=== PATIENT | male | born 1980 | race Caucasian/White ===

== ENCOUNTER 2019-05-22 16:16 | Emergency (ER) | payer OTHER ==
[~2019-05-22] VITALS: Ht 188 cm; Wt 81.7 kg
[~2019-05-22 16:16] MED LIST: ALBU.083IS IH; ALBU90OI61 INH; Bactrim Ds Tab1 EACH PO; CHOL10002 PO; CYCL10 PO; HYDACE5 PO; LEVSOD150 PO; NAPR500 PO; OXYACE5T PO; PENVK500 PO; PSEU120ER PO; RXCLIN PO; RXOXYACE PO; TRAM50 PO; Ultram50 MG PO
[2019-05-22] MEDS ORDERED: MINO50 PO (16:53)
== END 2019-05-22 17:33 | disposition home or self-care (01) ==
LOC: ER 16:16
DX: L03.116 Cellulitis of left lower limb (principal); E07.9 Disorder of thyroid, unspecified; F17.200 Nicotine dependence, unspecified, uncomplicated; Z79.899 Other long term (current) drug therapy
CPT/HCPCS: 90471; 90714; 96372; 99283-25; J0690

== ENCOUNTER 2020-10-12 05:21 | Emergency (ER) | payer OTHER ==
[~2020-10-12] VITALS: Ht 188 cm; Wt 95.2 kg
[~2020-10-12 05:21] MED LIST changes: +MINO50 PO
[2020-10-12] MEDS ORDERED: OXYACE7.5T PO (09:03)
== END 2020-10-12 09:27 | disposition home or self-care (01) ==
LOC: ER 05:21
DX: S42.211A Unspecified displaced fracture of surgical neck of right humerus, initial encounter for closed fracture (principal); I10 Essential (primary) hypertension; F17.210 Nicotine dependence, cigarettes, uncomplicated; S60.512A Abrasion of left hand, initial encounter; S00.83XA Contusion of other part of head, initial encounter; Y93.55 Activity, bike riding; Y92.410 Unspecified street and highway as the place of occurrence of the external cause
CPT/HCPCS: 70110; 73030; 99285-25; A9270

== ENCOUNTER 2020-11-18 18:34 | Emergency (ER) | payer OTHER ==
[~2020-11-18] VITALS: Ht 190.5 cm; Wt 90.7 kg
[~2020-11-18 18:34] MED LIST changes: +OXYACE7.5T PO
[2020-11-18 19:17] LABS: BASOPHILS ABSOLUTE AUTO 0.13 K/mm3 (0.00-0.23); BASOPHILS PERCENT AUTO 1 % (0-2); EOSINOPHILS ABSOLUTE AUTO 0.57 K/mm3 (0.00-0.68); EOSINOPHILS PERCENT AUTO 4 % (0-6); Hematocrit 44.1 % (37.0-53.0); IMMATURE GRAN ABSOLUTE AUTO 0.09 K/mm3 (0.00-0.10); IMMATURE GRAN PERCENT AUTO 1 % (0-1); LYMPHOCYTES ABSOLUTE AUTO 1.93 K/mm3 (0.84-5.20); LYMPHOCYTES PERCENT AUTO 13 % (21-46); MONOCYTES PERCENT AUTO 5 % (4-13); Mean Corpuscular Volume 94 fL (80-100); Mean Platelet Volume 10.3 fL (9.1-12.4); NEUTROPHILS ABSOLUTE AUTO 11.93 K/mm3 (1.96-9.15); NEUTROPHILS PERCENT AUTO 77 % (41-73); Platelet Count 359 K/mm3 (150-400); RDW Coefficient Variation 13.4 % (11.7-14.2); RDW Standard Deviation 46.5 fL (35.1-46.3); Red Blood Cell Count 4.69 M/mm3 (4.30-5.90); White Blood Cell Count 15.45 K/mm3 (4.00-11.30)
[2020-11-18 21:23] LABS: Alanine Aminotransfer (ALT/SGP 133 U/L (12-78); Albumin, Blood 4.8 g/dL (3.4-5.0); Albumin/Globulin Ratio 1.3 (0.8-1.8); Alk Phos 100 U/L (50-136); Anion Gap 6 mmol/L (6-16); Aspartate Aminotrans (AST/SGOT 217 U/L (12-37); Bilirubin, Total 0.7 mg/dL (0.1-1.0); Blood Urea Nitrogen 19 mg/dL (8-24); Bun/Creatinine Ratio 13.8 (12.0-20.0); CO2, Blood 28 mmol/L (21-32); Calcium, Blood 9.6 mg/dL (8.5-10.1); Chloride, Blood 103 mmol/L (98-108); Creatinine, Blood 1.38 mg/dL (0.60-1.20); Globulin, Blood 3.7 g/dL (2.2-4.0); Glomerular Filtration Rate 57 (60-); Glucose, Blood 112 mg/dL (70-99); Potassium, Blood 3.2 mmol/L (3.5-5.5); Sodium, Blood 137 mmol/L (136-145); Total Protein, Blood 8.5 g/dL (6.4-8.2); Troponin I <0.015 ng/mL (0.000-0.040)
[2020-11-18] MEDS ORDERED: IBUP800 PO (22:18)
[2020-11-18] MEDS ORDERED: ALBU90OI INH (22:18)
[2020-11-18] MEDS ORDERED: Norco 5-325 Ta1 EACH PO (22:18)
== END 2020-11-18 22:15 | disposition home or self-care (01) ==
LOC: ER 18:34
PROVIDERS: Emergency Medicine Emergency Medical Services
DX: S32.019A Unspecified fracture of first lumbar vertebra, initial encounter for closed fracture (principal); S32.10XA Unspecified fracture of sacrum, initial encounter for closed fracture; S32.592A Other specified fracture of left pubis, initial encounter for closed fracture; I10 Essential (primary) hypertension; F17.210 Nicotine dependence, cigarettes, uncomplicated; W10.9XXA Fall (on) (from) unspecified stairs and steps, initial encounter
CPT/HCPCS: 36415; 71111; 72131; 72192; 80053; 83880; 84484; 85025; 93005; 93010; 99284-25; A9270

== ENCOUNTER 2021-06-15 03:47 | Inpatient (IN) | payer OTHER ==
[~2021-06-15] VITALS: Ht 182.9 cm; Wt 80.3 kg
[~2021-06-15 03:47] MED LIST changes: +ALBU90OI INH; +IBUP800 PO; +Norco 5-325 Ta1 EACH PO
[2021-06-15 03:55] LABS: PCO2 Arterial 38.3 mmHg (35-45); PO2 Arterial 36.4 mmHg (80-100); pH Blood Arterial 7.46 (7.35-7.45)
[2021-06-15 04:05] LABS: Calcium, Ionized (POC) 1.09 mmol/L (1.10-1.46); Chloride (POC) 97 mmol/L (98-108); Creatinine (POC) 2.9 mg/dL (0.8-1.3); Glucose (ISTAT POC) 72 mg/dL (70-99); Hemoglobin (POC) 12.9 g/dL (13.5-17.5); Potassium (POC) 3.8 mmol/L (3.5-5.5); Sodium (POC) 136 mmol/L (135-148); Total CO2 (POC) 27 mmol/L (21-32)
[2021-06-15 04:06] LABS: Hematocrit 35.9 % (37.0-53.0); Hemoglobin 11.6 g/dL (13.5-17.5); Mean Corpuscular HGB 30.9 pg (26.0-34.0); Mean Corpuscular HGB Conc 32.3 g/dL (31.5-36.5); Mean Corpuscular Volume 96 fL (80-100); Mean Platelet Volume 10.3 fL (9.1-12.4); Platelet Count 315 K/mm3 (150-400); RDW Coefficient Variation 15.6 % (11.7-14.2); Red Blood Cell Count 3.76 M/mm3 (4.30-5.90); White Blood Cell Count 10.89 K/mm3 (4.00-11.30)
[2021-06-15 04:30] LABS: Albumin, Blood 2.8 g/dL (3.4-5.0); Albumin/Globulin Ratio 0.8 (0.8-1.8); Bilirubin, Total 0.6 mg/dL (0.1-1.0); Calcium, Blood 8.6 mg/dL (8.5-10.1); Creatinine, Blood 2.78 mg/dL (0.60-1.20); Globulin, Blood 3.5 g/dL (2.2-4.0); Magnesium, Blood 2.1 mg/dL (1.6-2.4); Potassium, Blood 3.8 mmol/L (3.5-5.5); Total Protein, Blood 6.3 g/dL (6.4-8.2)
[2021-06-15 04:41] LABS: PCO2 Arterial 47.5 mmHg (35-45); PO2 Arterial 148 mmHg (80-100); pH Blood Arterial 7.33 (7.35-7.45)
[2021-06-15 04:42] LABS: Influenza A, PCR NEGATIVE (NEGATIVE); Influenza B, PCR NEGATIVE (NEGATIVE); Resp Syncytial Virus, PCR NEGATIVE (NEGATIVE); SARS-Cov-2 (COVID-19) PCR, MMC NEGATIVE (NEGATIVE)
[2021-06-15 05:00] LABS: BAND PERCENT MAN 36 % (0-8); BASOPHILS PERCENT MAN 0 % (0-2); EOSINOPHILS PERCENT MAN 0 % (0-6); LYMPHOCYTES ABSOLUTE MAN 1.08 K/mm3 (0.84-5.20); LYMPHOCYTES PERCENT MAN 10 % (21-46); METAMYELOCYTE ABSOLUTE MAN 0.21 K/mm3 (0.00-0.00); METAMYELOCYTE PERCENT MAN 2 % (0-0); MONOCYTES ABSOLUTE MAN 0.43 K/mm3 (0.16-1.47); MONOCYTES PERCENT MAN 4 % (4-13); NEUTROPHILS ABSOLUTE MAN 9.14 K/mm3 (1.96-9.15); SEG NEUTROPHILS PERCENT MAN 48 % (41-73); TOTAL CELLS COUNTED 100
--- NOTE | 2021-06-15 06:54 | NUR ---
ASSUMED CARE PATIENT ARRIVED FROM ER TO ICU @ 0525. PATIENT WAS INTUBATED AT THAT TIME-SEE RT NOTES ON SETTINGS. SEDATED WITH KETAMINE (SWITCHED TO PROPOFOL AT TOA) AND NS INF TO PIV IN LT ARM. MARINO PATENT AND DRAINING YELLOW CLEAR URINE TO GRAVITY. UPON ARRIVAL PATIENT WAS PLACED ON HIGH LT SIDE TO IMPROVED OXYGEN SATS, BUT BEGAN DESATTING TO 70'S QUICKLY. PATIENT SUBSEQUENTLY TURNED TO SUPINE WITH NO IMPROVEMENT IN SATS. PATIENT WAS THEN PRONED AND BAGGED WITH SATURATIONS IMPROVEMENT TO 90'S. PATIENT BECAME HYPOTENSIVE AND LEVOPHED STARTED LOW DOSE INTO PIV. PROPOFOL SWITCHED TO VERSED AND PATIENT REMAINS PRONED WITH VERSED @ 1MG/HR, LEVOPHED @ 5MCG/KG/MIN, AND LITER BOLUS INF. REPORT GIVEN TO VANESSA PAIGE.
[2021-06-15 07:22] LABS: Source, Urine Foley catheter
[2021-06-15 07:26] LABS: Appearance, Urine Clear (Clear); Blood, Urine Neg (Neg); Color, Urine Yellow (P-Yellow); Glucose Qualitative, Urine Neg (Neg); Ketones, Urine Neg (Neg); Leukocyte Esterase, Urine Neg (Neg); Nitrite, Urine Neg (Neg); Protein, Urine 2+ (Neg); Urobilinogen, Urine NORM (Normal)
[2021-06-15 07:39] LABS: Bilirubin, Urine 1+ (Neg)
[2021-06-15 07:40] LABS: Red Blood Cells, Urine 0-2 /hpf (0-2); White Blood Cells, Urine 0-2 /hpf (0-5)
[2021-06-15 07:41] LABS: Bacteria Rare /hpf; Granular Casts 0-2 /lpf (0); Mucus Light (0-Heavy); Squamous Epithelial Cells Rare /hpf (Few)
[2021-06-15 07:42] LABS: Calcium Oxalate Crystals Few /hpf
[2021-06-15 07:54] LABS: U Amphetamine Screen DETECTED; U Barbituate Screen Not Detected; U Benzodiazapine Screen Not Detected; U Buprenorphine Screen Not Detected; U Cannabinoids Screen DETECTED; U Cocaine Screen Not Detected; U Methadone Screen Not Detected; U Methamphetamine Screen DETECTED; U Opiates Screen Not Detected; U Oxycodone Screen Not Detected; U Phencyclidine Screen Not Detected; U Propoxyphene Screen Not Detected
--- NOTE | 2021-06-15 07:56 | NUR ---
Received report from Frannie MENDEZ. Patient is intubated and sedated with 8.0 ET and 24 cm at lips with vent settings of AC/PC 20/100/20 and sats 100%m and just reduced by Rt to 60% and sats 100%. He awakens with reduced sedation. He was increased from 1mg/hr to 3mg/hr as he was awakening and pulling at lines and tubes even with restraints in place. He has 20ga IV LAC and infusing NS bolus, Levophed 5mcg/min, and Versed. Patient has 16 Fr Bhandari draining yellow urine. Patient is proned R/T decreased sats.
[2021-06-15 08:23] LABS: Thyroxine (T4) <0.5 ug/dL (4.5-12.1)
--- NOTE | 2021-06-15 09:42 | NUR ---
Unproned patient and placed PICC line in MARIO and is currently infusingNS at 150ml/hr, Verced 3 mg/hr, Levophed at 5 mcg/min, and multiplel Abx. Bhandari remains patent and sample and tox sent, vent settings AC/PC 20/100/12 and sats 97%.
--- NOTE | 2021-06-15 11:39 | NUR ---
Patient remains intubated and sedated and awakens o verbal stimulu. Dr Zapien by and assessed patient and added Fentanyl gtt to patient. Family at bedside. Patient tolerating current vent setting but eCo2 has been 17-[address] Zapien notified and they are going to make vent settings changes.
--- NOTE | 2021-06-15 12:18 | NUR ---
Echocardiogram completed.
--- NOTE | 2021-06-15 13:05 | NUR ---
Patient resting better and continues to awaken with verbal stimuli. New vent settings are 15/550/60/16 and sats 94%. Famil;y at bedside and Dr pena has spoke with them and updated. Fentanyl at 25 mcg/hr, Levophed 5 mcg/min, Verced at 3 mg/hr and NS at 150ml/hr.
[2021-06-15 13:44] LABS: PCO2 Arterial 39.2 mmHg (35-45); pH Blood Arterial 7.37 (7.35-7.45)
--- NOTE | 2021-06-15 15:30 | NUR ---
Patient has spiked fever 101.0 and placed ice packs arm pits and placed fan on him. Vent settings of 14/550/60/14 and sats 95%. Levophed on standby and systolic 130's. Verced at 3 mg/hr, Fetanyl at 25 mcg/hr and NS at 150 ml/hr. Bhandari patent with yellow/light bayron urine. ET continues wit copius amouts of frothy secretions.
--- NOTE | 2021-06-15 19:19 | NUR ---
ASSUMED CARE OF PT AT 1915. REPORT RECEIVED AT [facility]. PT PRESENTS IN BED. MAKES GOOD EYE CONTACT. DOES MAKE ATTEMPT TO REACH FOR HIS ETT. INSTRUCTED PT NOT TO DO THIS AND RATIONALE CONCERNING HARM THAT COULD COME FROM PULLING AT TUBE. SUCTIONED PT WITH RETURN OF CREAM COLORED SECRETIONS. WILL REVIEW CHART AND PLAN OF CARE FOR THIS PT. VENT SETTINGS: AC 14, Tv 550, FIO2 60 PERCENT, PEEP 14. RESPIRATORY IN TO EVALUATE PT CHANGES PEEP TO 12. WILL MONITOR PT'S ABILITY TO HAVE LOWER PEEP.
--- NOTE | 2021-06-15 20:16 | NUR ---
PT BECOMES VERY ANXIOUS. AND MAKES A VERY STRONG ATTEMPT TO PULL AT ETT. INCREASED VERSED DRIP TO 4 MG/HOUR, AND FENTANYL TO 50 MCG'S/HOUR. THIS DEMONSTRATES GOOD RESULTS.
--- NOTE | 2021-06-15 22:50 | NUR ---
HAVE BEEN ABLE TO TURN PT TO HIS RIGHT SIDE WITHOUT DESATURATIONS OR INCREASED DYSPNEA. FIO2 HAS BEEN DECREASED TO 45 PERCENT. PT MAINTAINS > 90 PERCENT SATURATIONS.
[2021-06-16 05:27] LABS: Hematocrit 25.3 % (37.0-53.0); Hemoglobin 8.3 g/dL (13.5-17.5); Mean Corpuscular HGB 31.3 pg (26.0-34.0); Mean Corpuscular HGB Conc 32.8 g/dL (31.5-36.5); Mean Corpuscular Volume 96 fL (80-100); Mean Platelet Volume 10.6 fL (9.1-12.4); Platelet Count 232 K/mm3 (150-400); RDW Coefficient Variation 15.5 % (11.7-14.2); RDW Standard Deviation 54.4 fL (35.1-46.3); Red Blood Cell Count 2.65 M/mm3 (4.30-5.90)
[2021-06-16 05:58] LABS: Albumin, Blood 2.3 g/dL (3.4-5.0); Albumin/Globulin Ratio 0.7 (0.8-1.8); Bilirubin, Total 0.5 mg/dL (0.1-1.0); Bun/Creatinine Ratio 14.2 (12.0-20.0); Calcium, Blood 7.5 mg/dL (8.5-10.1); Creatinine, Blood 1.97 mg/dL (0.60-1.20); Globulin, Blood 3.2 g/dL (2.2-4.0); Phosphorus, Blood 4.1 mg/dL (2.5-4.9); Potassium, Blood 2.8 mmol/L (3.5-5.5); Total Protein, Blood 5.5 g/dL (6.4-8.2)
[2021-06-16 06:09] LABS: BAND PERCENT MAN 43 % (0-8); BASOPHILS ABSOLUTE MAN 0.13 K/mm3 (0.00-0.23); BASOPHILS PERCENT MAN 1 % (0-2); EOSINOPHILS ABSOLUTE MAN 0.13 K/mm3 (0.00-0.68); EOSINOPHILS PERCENT MAN 1 % (0-6); LYMPHOCYTES ABSOLUTE MAN 0.69 K/mm3 (0.84-5.20); LYMPHOCYTES PERCENT MAN 5 % (21-46); METAMYELOCYTE ABSOLUTE MAN 0.13 K/mm3 (0.00-0.00); METAMYELOCYTE PERCENT MAN 1 % (0-0); MONOCYTES ABSOLUTE MAN 0.41 K/mm3 (0.16-1.47); MONOCYTES PERCENT MAN 3 % (4-13); NEUTROPHILS ABSOLUTE MAN 12.37 K/mm3 (1.96-9.15); SEG NEUTROPHILS PERCENT MAN 46 % (41-73); TOTAL CELLS COUNTED 100
--- NOTE | 2021-06-16 06:30 | NUR ---
PT HAS HAD SPONTANEOUS DROPS IN SATURATIONS INTO 74 PERCENT RANGE. PT HAS TOLERATED TURNS TO HIS RIGHT DURING NIGHT. VERSED DRIP AT 4 MG/HOUR AND FENTANYL 50 MCG'S/HOUR. TUBE FEEDING HAS BEEN INCREASED TO 35 ML/HOUR. 0 RESIDUALS. WILL CONTINUE TO MONITOR, AND WILL REPORT OFF TO ONCOMING RN.
--- NOTE | 2021-06-16 07:27 | NUR ---
Received report from Jonathan MENDEZ. Patient is intubated and sedated. He has 8.0 ET and 24cm at lips with vent settings of AC/VC 14/550/40/10, just reduced PEEP from 12 to 10 and sats 100%. Patient awakens to verbal and care stimuli and is able to answer questions by knodding head. He has PICC line to MARIO and is infusing Fentanyl at 50 mcg/hr, Verced at 4 mg/hr and NS at 100 ml/hr. He has OG in placed and has Pivot 1.5 infusing at 35 and goal at 50ml/hr and 30 water flush Q4. He has 16Fr temp kincaid draining to gravity light bayron colored urine and temp 98.4. He has 20ga IV LAC and LFA, both flushed and SL'd. RT in room now.
--- NOTE | 2021-06-16 09:32 | NUR ---
patient remains intubated and sedated, no gtt setting changes and new vent settings are 14/550/40/8 and sats 96%. Family at bed side, repositioned. Increased Pivot 1.5 to 45 ml/hr.
--- NOTE | 2021-06-16 11:28 | NUR ---
Patient placed on spon. mode and PS 12 and sats >90%. he has a hard time staying awake and becomes apnic. Versed placed on standby. Will work forward to extubation. Patient able to follow commands and answer simple yes no questions. Fentanyl gtt reduced to 25 mcg/hr.
--- NOTE | 2021-06-16 14:15 | NUR ---
Patient did not tolerate spon. mode and was placed back on am settings about 30 minutes later. We just attempted again with PS12 and he will not stay awake enough to spon. breath. Verced and Fentanyl are both still off. VSS. Family back from lunch and are at bedside.
--- NOTE | 2021-06-16 16:37 | NUR ---
After several attempts to wean patient from vent on Spon. Mode and patient unsuccessful, Dr Zapien has decided to wait until tomorrow and leave verced and Fentanyl off and try again tomorrow to extubate. Patient feels he can stay awake , but unable to do so. Waisted fentanyl and verced with KLEBER John RN; Fentanyl 20ml's or 40 mcg, and Verced 100ml or 50 mg. Current vent [id number]/550/30/5 with sats 94%. Patient awakens easily to verbal stimuli and falls right back to sleep.
--- NOTE | 2021-06-16 18:13 | NUR ---
Patient extubated at 1730 after 30 minutes on spon. mode with copius about ofmilky secretion coughing by tube. He was placed on 6L O2 via NC and now currently on 2L O2 via NC and sats>90%. He has tolerated sips of water and clear airway. He is able to suction self to clear secretions. PICC line to MARIO infusing NS at 100 ml/hr. Family Notified.
--- NOTE | 2021-06-16 19:29 | NUR ---
ASSUMED CARE OF PT AT 1900. REPORT RECEIVED. PT PRESENTS IN BED. ALERT AND ORIENTED. PLEASANT AND COOPERATIVE WITH CARE AND ASSESSMENT. CLEAR SPEECH PATTERN. ABLE TO TAKE DRINKS OF WATER WITHOUT COUGH. WILL ADVANCE DIET ABLE. PT USES YAUNKEUR TO SELF CLEAR SECRETIONS. WILL REVIEW CHART AND PLAN OF CARE FOR THIS PT.
[2021-06-17 04:34] LABS: BASOPHILS ABSOLUTE AUTO 0.06 K/mm3 (0.00-0.23); BASOPHILS PERCENT AUTO 0 % (0-2); EOSINOPHILS ABSOLUTE AUTO 0.03 K/mm3 (0.00-0.68); EOSINOPHILS PERCENT AUTO 0 % (0-6); Hemoglobin 9.4 g/dL (13.5-17.5); IMMATURE GRAN ABSOLUTE AUTO 0.06 K/mm3 (0.00-0.10); IMMATURE GRAN PERCENT AUTO 0 % (0-1); LYMPHOCYTES ABSOLUTE AUTO 0.52 K/mm3 (0.84-5.20); LYMPHOCYTES PERCENT AUTO 3 % (21-46); MONOCYTES ABSOLUTE AUTO 0.17 K/mm3 (0.16-1.47); MONOCYTES PERCENT AUTO 1 % (4-13); Mean Corpuscular HGB 30.7 pg (26.0-34.0); Mean Corpuscular HGB Conc 32.4 g/dL (31.5-36.5); Mean Corpuscular Volume 95 fL (80-100); Mean Platelet Volume 10.8 fL (9.1-12.4); NEUTROPHILS ABSOLUTE AUTO 16.93 K/mm3 (1.96-9.15); NEUTROPHILS PERCENT AUTO 95 % (41-73); Platelet Count 244 K/mm3 (150-400); RDW Coefficient Variation 15.2 % (11.7-14.2); Red Blood Cell Count 3.06 M/mm3 (4.30-5.90); White Blood Cell Count 17.77 K/mm3 (4.00-11.30)
[2021-06-17 04:52] LABS: Albumin, Blood 2.3 g/dL (3.4-5.0); Anion Gap 7 mmol/L (6-16); Blood Urea Nitrogen 24 mg/dL (8-24); Bun/Creatinine Ratio 19.7 (12.0-20.0); CO2, Blood 28 mmol/L (21-32); Calcium, Blood 8.6 mg/dL (8.5-10.1); Chloride, Blood 105 mmol/L (98-108); Creatinine, Blood 1.22 mg/dL (0.60-1.20); Glomerular Filtration Rate >60 (60-); Glucose, Blood 109 mg/dL (70-99); Magnesium, Blood 2.2 mg/dL (1.6-2.4); Phosphorus, Blood 2.1 mg/dL (2.5-4.9); Potassium, Blood 3.2 mmol/L (3.5-5.5); Sodium, Blood 140 mmol/L (136-145)
[2021-06-17 05:50] LABS: BAND PERCENT MAN 5 % (0-8); BASOPHILS PERCENT MAN 0 % (0-2); EOSINOPHILS PERCENT MAN 0 % (0-6); LYMPHOCYTES ABSOLUTE MAN 0.53 K/mm3 (0.84-5.20); LYMPHOCYTES PERCENT MAN 3 % (21-46); MONOCYTES PERCENT MAN 0 % (4-13); NEUTROPHILS ABSOLUTE MAN 17.23 K/mm3 (1.96-9.15); SEG NEUTROPHILS PERCENT MAN 92 % (41-73); TOTAL CELLS COUNTED 100
--- NOTE | 2021-06-17 06:13 | NUR ---
PT MAINTAINS ON 2 L/M OXYGEN PER NASAL CANNULA. MAINTAINS > 90 PERCENT SATURATIONS. PT HAS BEEN ABLE TO SELF CLEAR EXPECTORANT USING YAUNKEUR. PT DOES HAVE COMPLAINT OF INDIGESTION THIS NIGHT. MEDICATED ONCE WITH MAALOX WITH LITTLE RELIEF. PT STATES THAT EATING CRACKERS HAS HELP SOMEWHAT MORE. PT ACKNOWLEDGES THAT HE WILL NEED TO REMAIN IN THE HOSPITAL FOR "A FEW DAYS MORE" FOR ANTIBIOTICS. PT HAS BEEN ABLE TO MOVE HIMSELF ABOUT IN BED ON HIS OWN. NO COMPLAINTS PAIN OR DYSPNEA. WILL CONTINUE TO MONITOR PT, AND WILL REPORT OFF TO ONCOMING RN.
--- NOTE | 2021-06-17 07:15 | NUR ---
ASSUMPTION OF CARE PT IS AWAKE HOLDING BREATHING TREATMENT. HE IS ALERT AND ORIENTED, ANSWERS QUESTIONS APPROPRIATELY AND FOLLOWS COMMANDS. HE IS RECEIVING NS 100ML/HR. HE HAS A PRODUCTIVE COUGH AND USES YANKEUR INDEPENDENTLY TO SUCTION MOUTH. HE IS ON 2L NC WITH SPO2 >93%. MARINO PATENT AND DRAINING. PLAN TO GET PT UP TO CHAIR TODAY AND REMOVE MARINO. PT PCU STATUS.
--- NOTE | 2021-06-17 15:20 | NUR ---
UPDATE PT WAS SITTING UP IN A CHAIR FOR A FEW HOURS. STANDBY ASSIST WITH STEADY GAIT. PT NOW RESTING IN BED. CONTINUES TO C/O RIB PAIN, MEDICATED PER EMAR. HE USED THE URINAL INDEPENDENTLY. PROVIDED BEVERAGES, WATCHING TV AND DENIES NEEDS AT THIS TIME.
--- NOTE | 2021-06-17 17:51 | NUR ---
SUMMARY & PLAN TO TRANSFER PT REMAINS ALERT AND ORIENTED. HE IS ON 2L NC WITH SPO2 >90%. HE SAT IN THE CHAIR FOR A FEW HOURS TODAY. CURRENTLY LYING IN BED SLEEPING. HE USES THE URINAL INDEPENDENTLY AND HAS HAD A SHIFT OUTPUT OF 1400ML. CONTINUES TO C/O RIB PAIN. HE ALSO REMAINS HYPERTENSIVE. PROVIDER NOTIFIED AND ORDERS PLACED. PLAN TO TRANSFER PT TO MEDICAL FLOOR BEFORE SHIFT CHANGE.
--- NOTE | 2021-06-17 18:18 | NUR ---
TRANSFER TO MEDICAL FLOOR REPORT GIVEN TO MIR MENDEZ. PT TRANSFERS INDEPENDENTLY TO WHEELCHAIR AND TAKEN TO FLOOR BY PCT.
--- NOTE | 2021-06-17 19:33 | NUR ---
SHIFT SUMMARY- PT WAS TRANSFERED TO MEDICAL FLOOR FROM ICU. PER REPORT PT SATS WERE MAINTAINING ON 2L VIA NC. PT ARRIVED JUST PRIOR TO SHIFT CHANGE, DURING REPORT THE PT WAS PLACED BACK ON O2 AT 4L VIA NC. CALLED DR HEARD TO REQUEST AN ORDER FOR CONT BIOX THE PT SATS WERE 82-84% ON ROOM AIR. ORDER PLACED, RT CONTACTED THEY ARE AWARE OF THE ORDER. PT CURRENTLY CONNECTED TO A VITALS MACHINE TO MONITOR O2 SATS. SATS MAINTAINING 91% ON 4L VIA NC. PT IN BED, CALL LIGHT IN REACH, TELE PLACED PRIOR TO SHIFT CHANGE. PER REPORT THE PT IS A 1P SBA TO THE BATHROOM HE CAN USE THE URINAL INDEPENDENTLY IN THE BED. ALL PASSED ON IN REPORT TO NIGHT VANESSA DREW.
[2021-06-18 04:51] LABS: Hematocrit 27.5 % (37.0-53.0); Mean Corpuscular HGB 30.5 pg (26.0-34.0); Mean Corpuscular HGB Conc 32.7 g/dL (31.5-36.5); Mean Corpuscular Volume 93 fL (80-100); Mean Platelet Volume 10.4 fL (9.1-12.4); Platelet Count 237 K/mm3 (150-400); RDW Coefficient Variation 15.3 % (11.7-14.2); RDW Standard Deviation 52.1 fL (35.1-46.3); Red Blood Cell Count 2.95 M/mm3 (4.30-5.90); White Blood Cell Count 13.03 K/mm3 (4.00-11.30)
--- NOTE | 2021-06-18 06:17 | NUR ---
SHIFT SUMMARY PATIENT ALERT AND ORIENTED X3. HAD NO COMPLAINTS OF PAIN OR SHORTNESS OF BREATH. NO ACUTE ISSUES NOTED OVERNIGHT. CALL LIGHT WITHIN REACH. REPORT GIVEN TO ONCOMING RN.
[2021-06-18 07:07] LABS: Anion Gap 4 mmol/L (6-16); Blood Urea Nitrogen 17 mg/dL (8-24); CO2, Blood 27 mmol/L (21-32); Calcium, Blood 8.4 mg/dL (8.5-10.1); Chloride, Blood 107 mmol/L (98-108); Creatinine, Blood 1.13 mg/dL (0.60-1.20); Glomerular Filtration Rate >60 (60-); Glucose, Blood 87 mg/dL (70-99); Potassium, Blood 3.7 mmol/L (3.5-5.5); Sodium, Blood 138 mmol/L (136-145)
--- NOTE | 2021-06-18 17:06 | NUR ---
SHIFT SUMMARY THE PATIENT IS ALERT AND ORIENTED X4, PLEASANT AND COOPERATIVE WITH CARE. THE PATIENT STARTED THE SHIFT ON 10LPM HUMIDIFIED OXYGEN. THE PATIENT WILL DESAT WITH BEDSIDE INTERVENTIONS SUCH THE INCENTIVE SPIROMETER AND FLUTTER VALVE. THE PATIENT WAS PUT ON AIRVOW PER RT HAKEEM. THE PATIENT IS CURRENTLY ON 25LPM RANGING FROM 60-66% 02 DEPENDING ON THEIR BREATHING PATTERN. THE PATIENT IS CURRENTLY SATTING AT 92-93% MD HEARD NOTIFIED. PRN MORPHINE ON BOARD FOR PATIENT. SUCTION AT BEDSIDE. VSS CURRENTLY. CALL LIGHT WITHIN REACH. THIS NURSE WILL CONITNUE TO CARE FOR THE PATIENT UNTIL SHIFT REPORT IS GIVEN TO ONCOMING NURSE. ONCOMING
--- NOTE | 2021-06-19 07:11 | NUR ---
SHIFT SUMMARY PT IS A 41 Y/O MALE, ADMITTED FOR HYPOXIC RESPIRATORY FAILURE. HE IS A&O X 4, BEDREST D/T SEVERE DESATTING WITH ANY EXERTION. CURRENTLY ON AIRVO AT 30L 70% FIO2, INCREASED FROM 25L AND 66% FI02 AT START OF SHIFT. SATTING APPROXIMATELY 90%. VITAL SIGNS OTHERWISE STABLE. PT DID REPORT RIB PAIN, BUT REFUSED TYLENOL OR ULTRAM "THEY DONT WORK FOR ME". NO OTHER ACUTE CHANGES IN PT CONDITION NOTED DURING THE NIGHT. REPORT GIVEN TO ONCOMING RN.
--- NOTE | 2021-06-19 16:49 | NUR ---
SHIFT SUMMARY PATIENT ALERT AND ORIENTED X4, PLEASANT AND COOPERATIVE WITH CARE. PATIENT'S O2 NEEDS INCREASED TO 35LPM AND 90% ON AIR VO. THE PATIENT IS CURRENTLY SATTING AT 95% VSS AT THIS TIME. NO DISTRESS NOTED AT THIS TIME. WILL CONTINUE TO CARE FOR THE PATIENT UNTIL SHIFT REPORT IS GIVEN TO ONCOMING NURSE.
[2021-06-20 04:58] LABS: Hematocrit 29.6 % (37.0-53.0); Hemoglobin 9.6 g/dL (13.5-17.5); Mean Corpuscular HGB 31.1 pg (26.0-34.0); Mean Corpuscular HGB Conc 32.4 g/dL (31.5-36.5); Mean Corpuscular Volume 96 fL (80-100); Mean Platelet Volume 10.3 fL (9.1-12.4); NRBC ABSOLUTE 0.02 K/mm3 (0.00-0.02); NRBC Auto 0.2 /100 WBC (0.0-0.2); Platelet Count 264 K/mm3 (150-400); RDW Coefficient Variation 15.4 % (11.7-14.2); RDW Standard Deviation 54.2 fL (35.1-46.3); Red Blood Cell Count 3.09 M/mm3 (4.30-5.90)
[2021-06-20 05:42] LABS: Anion Gap 5 mmol/L (6-16); Blood Urea Nitrogen 16 mg/dL (8-24); Bun/Creatinine Ratio 17.4 (12.0-20.0); CO2, Blood 30 mmol/L (21-32); Calcium, Blood 8.5 mg/dL (8.5-10.1); Chloride, Blood 103 mmol/L (98-108); Creatinine, Blood 0.92 mg/dL (0.60-1.20); Glomerular Filtration Rate >60 (60-); Glucose, Blood 93 mg/dL (70-99); Potassium, Blood 4.3 mmol/L (3.5-5.5); Sodium, Blood 138 mmol/L (136-145)
--- NOTE | 2021-06-20 06:26 | NUR ---
SHIFT SUMMARY PT IS A 41 Y/O MALE, ADMITTED FOR HYPOXIC RESPIRATORY FAILURE. HE IS A&O X 4, BEDREST. PT IS CURRENTLY ON 35L & 90% VIA AIRVO, DESATS WITH ANY EXERTION, > 90% AT REST. TELE SHOWED ST IN THE 100S. VITAL SIGNS OTHERWISE STABLE. NO C/O PAIN OR NAUSEA. NO ACUTE CHANGES IN PT CONDITION NOTED DURING THE NIGHT. WILL CONTINUE TO MONITOR AND TREAT PER EMAR UNTIL HAND OFF TO DAY SHIFT RN.
[2021-06-20 09:45] LABS: International Normalized Ratio 1.03; Prothrombin Time Results 10.8 Sec (9.7-11.5)
[2021-06-20 15:22] LABS: Automated BF RBC Count 0.004 M/mm3 (0-0); RBC Count, Body Fluid 4000 /mm3 (0-0)
[2021-06-20 15:35] LABS: pH, Body Fluid 7.5
[2021-06-20 15:40] LABS: Albumin, Body Fluid 1.8 g/dL; Glucose, Body Fluid 108 mg/dL; Lactate Dehydrogenase, Body Fl 292 U/L; Protein, Body Fluid 3.2 g/dL
[2021-06-20 17:29] LABS: Automated BF WBC Count 15.242 K/mm3 (0-999); Body Fluid WBC Count 15242 /mm3 (0-999)
[2021-06-20 17:59] LABS: Appearance, Body Fluid Cloudy (Clear); Color, Body Fluid Yellow (None-Yellow); Total Cell Count, Body Fluid 100
--- NOTE | 2021-06-20 18:32 | NUR ---
SHIFT SUMMARY THE PATIENT IS ALERT AND ORIENTED X4, PLEASANT AND COOPERATIVE WITH CARE. THE PATIENT HAD A THORACENTESIS DONE THIS SHIFT 350ML OUT AND TOLERATED THE PROCEDURE WELL. THE PATIENT IS CURRENTLY ON 35LPM AT 75% VIA AIR VO. PATIENT IS SATTING ABOVE 90% MEDICATED X1 FOR PAIN. SUCTION AT BEDSIDE FOR PRODUCTIVE COUGH. VSS. BED IN LOWEST POSITION. CALL LIGHT WITHIN REACH
--- NOTE | 2021-06-21 06:44 | NUR ---
SHIFT SUMMARY PT IS A 41 Y/O MALE, ADMITTED FOR ACUTE RESPIRATORY FAILURE. HE IS A&O X 4, ON BEDREST. CURRENTLY ON AIRVO AT 35L AND 75% O2. PT GETS VERY SOB AND DESATS TO 80S WITH ANY EXERTION. PT REPORTED RIB AND BACK PAIN, WHICH ORDERED TRAMADOL DID NOT RELIEVE. INFORMED HOSPITALIST DR MART, AND PRN IV FENTANYL WAS ORDERED. NO C/O NAUSEA. VITAL SIGNS OTHERWISE STABLE. NO ACUTE CHANGES IN PT CONDITION NOTED DURING THE NIGHT. WILL CONTINUE TO MONITOR AND TREAT PER EMAR UNTIL HAND OFF TO DAY SHIFT RN.
[2021-06-21 17:40] LABS: PCO2 Arterial 48.2 mmHg (35-45); PO2 Arterial 50.5 mmHg (80-100); pH Blood Arterial 7.47 (7.35-7.45)
--- NOTE | 2021-06-21 19:01 | NUR ---
SHIFT SUMMARY PATIENT A&O X4. BEGAN SHIFT ON AIRVO 35L 80% WITH DIRECTOR DIGITAL COMMUNICATIONS SATING LOW 90S. PRODUCTIVE COUGH PRESENT. SUCTION AT BEDSIDE COUGHING UP THICK YELLOW MUCOUS. C/O RIB AND BACK PAIN, MEDICATED PER MAY. RT CALLED MULTIPLE TIMES T/O SHIFT FOR SATS IN THE MID 80S AND O2 NEEDS INCREASING AND AIRVO SETTINGS INCREASED. PATIENT EVENTUALLY SWITCHED TO BIPAP MACHINE AND SATS STILL IN LOW 80S. INFORMED AND PATIENT TRANSFERRED TO PCU. REPORT GIVEN TO SHIFT MECHANIC.
[2021-06-22 03:48] LABS: Hematocrit 30.5 % (37.0-53.0); Hemoglobin 9.8 g/dL (13.5-17.5); Mean Corpuscular HGB 31.1 pg (26.0-34.0); Mean Corpuscular HGB Conc 32.1 g/dL (31.5-36.5); Mean Corpuscular Volume 97 fL (80-100); Mean Platelet Volume 10.1 fL (9.1-12.4); Platelet Count 396 K/mm3 (150-400); RDW Coefficient Variation 15.7 % (11.7-14.2); RDW Standard Deviation 54.4 fL (35.1-46.3); Red Blood Cell Count 3.15 M/mm3 (4.30-5.90); White Blood Cell Count 17.01 K/mm3 (4.00-11.30)
--- NOTE | 2021-06-22 03:55 | NUR ---
PT DESATING ON AIRVO WAS PUT BACK ON BIPAP 02/16 90%FIO2. SATS NOW >90%. CALL LIGHT WITHIN REACH.
[2021-06-22 04:16] LABS: Albumin, Blood 2.6 g/dL (3.4-5.0); Anion Gap 3 mmol/L (6-16); Blood Urea Nitrogen 22 mg/dL (8-24); Bun/Creatinine Ratio 22.6 (12.0-20.0); CO2, Blood 34 mmol/L (21-32); Chloride, Blood 101 mmol/L (98-108); Creatinine, Blood 0.97 mg/dL (0.60-1.20); Glomerular Filtration Rate >60 (60-); Glucose, Blood 92 mg/dL (70-99); Potassium, Blood 4.8 mmol/L (3.5-5.5); Sodium, Blood 138 mmol/L (136-145)
[2021-06-22 04:36] LABS: PCO2 Arterial 47.8 mmHg (35-45); PO2 Arterial 65.3 mmHg (80-100); pH Blood Arterial 7.46 (7.35-7.45)
--- NOTE | 2021-06-22 06:33 | NUR ---
SHIFT SUMMARY PT IS ALERT AND ORIENTED. SOME GARBLED SPEECH IS NOTED WHICH IS BASELINE FOR HIM. VITALS HAVE BEEN STABLE AND IS CURRENTLY ON BIPAP 90% FIO2 WITH SATS ABOVE 92%. PT HAS BEEN ON AIRVO 50L 50%FIO2 FOR MOST OF THE NIGHT SINCE HE COULD NOT TOLERATE THE MASK UNTIL AAPROX 0330 HE WAS DESATING INTO THE MID 80'S AND WAS UNABLE TO INCREASE SATS AT MAX. PT HAS REPORTED FEELING PAIN IN THE RIGHT RIB AREA INTO THE BACK AND HAS BEEN MEDICATED PER EMAR. THORA PUNCTURE SITE IS CDI. PT USES URINAL IN BED. CALL LIGHT IS WITHIN REACH.
--- NOTE | 2021-06-22 17:36 | NUR ---
SHIFT SUMMARY PT A&Ox4, VSS, SR 90'S. SPO2>90% ON BIPAP INITIALLY, THEN TRANSITIONED TO AIRVO 50L 70%FiO2 FOR MAJORITY OF SHIFT. PT INITIALLY REPORTING MILD RUQ PAIN WITH DENIAL OF PRN TYLENOL, THEN WITH NO FURTHER REPORTS OF PAIN AND NO SIGNS OF DISTRESS THROUGHOUT THE SHIFT. WILL CONTINUE TO MONITOR UNTIL SHIFT REPORT TO NOC.
--- NOTE | 2021-06-22 18:22 | NUR ---
THIS RN AGREES W/ STUDENT NURSE DOCUMENTATION THIS SHIFT.
--- NOTE | 2021-06-22 21:22 | NUR ---
CARE ASSUMPTION PT IS AXO AND COMMUNICATING APPROPRIATELY. PT HAS O2 SAT >90% ON AIRVO 55L AND 80% FIO2. PT HAS C/O PAIN IN R RIBS, TREATED PER JEAN CLAUDE PEREZ. VSS STABLE. PT DENYING ANY FURTHER NEEDS AT THIS TIME.
--- NOTE | 2021-06-22 22:16 | NUR ---
UPDATE PT WAS ASLEEP W O2 SATS AT 99% SO AIRVO TURNED DOWN FROM 55L 80% TO 45L AND 60%. PT AWOKE SHORTLY AFTER THAT AND USED THE URINAL UNASSISTED CAUSING HIS O2 SATS TO DROP TO 82%. AIRVO TURNED UP TO 60L 90% W O2 SATS AT 85-86%. RT PLACED PT ON BIPAP W 100% FIO2 RESULTING IN O2 SATS 91-92%. TAX CREDIT LEASING CONSULTANT MIKE NOTIFIED OF CHANGE.
[2021-06-23 03:50] LABS: Hematocrit 28.3 % (37.0-53.0); Mean Corpuscular HGB 31.1 pg (26.0-34.0); Mean Corpuscular HGB Conc 31.8 g/dL (31.5-36.5); Mean Corpuscular Volume 98 fL (80-100); Platelet Count 412 K/mm3 (150-400); RDW Coefficient Variation 15.4 % (11.7-14.2); RDW Standard Deviation 55.1 fL (35.1-46.3); Red Blood Cell Count 2.89 M/mm3 (4.30-5.90); White Blood Cell Count 19.94 K/mm3 (4.00-11.30)
[2021-06-23 04:11] LABS: Albumin, Blood 2.7 g/dL (3.4-5.0); Anion Gap 5 mmol/L (6-16); Blood Urea Nitrogen 27 mg/dL (8-24); Bun/Creatinine Ratio 21.8 (12.0-20.0); CO2, Blood 32 mmol/L (21-32); Calcium, Blood 8.7 mg/dL (8.5-10.1); Chloride, Blood 100 mmol/L (98-108); Creatinine, Blood 1.24 mg/dL (0.60-1.20); Glomerular Filtration Rate >60 (60-); Glucose, Blood 106 mg/dL (70-99); Phosphorus, Blood 4.8 mg/dL (2.5-4.9); Potassium, Blood 4.6 mmol/L (3.5-5.5); Sodium, Blood 137 mmol/L (136-145)
[2021-06-23 04:20] LABS: BAND PERCENT MAN 1 % (0-8); BASOPHILS PERCENT MAN 0 % (0-2); EOSINOPHILS ABSOLUTE MAN 0.79 K/mm3 (0.00-0.68); EOSINOPHILS PERCENT MAN 4 % (0-6); LYMPHOCYTES ABSOLUTE MAN 0.79 K/mm3 (0.84-5.20); LYMPHOCYTES PERCENT MAN 4 % (21-46); METAMYELOCYTE ABSOLUTE MAN 0.39 K/mm3 (0.00-0.00); METAMYELOCYTE PERCENT MAN 2 % (0-0); MONOCYTES ABSOLUTE MAN 0.59 K/mm3 (0.16-1.47); MONOCYTES PERCENT MAN 3 % (4-13); NEUTROPHILS ABSOLUTE MAN 17.34 K/mm3 (1.96-9.15); SEG NEUTROPHILS PERCENT MAN 86 % (41-73); TOTAL CELLS COUNTED 100
--- NOTE | 2021-06-23 05:36 | NUR ---
FLANGE TURNER SUMMARY PT HAS REMAINED ALERT AND ORIENTED THIS SHIFT. BP WNL AND STABLE. TELE SHOWING SR 80-90'S THIS SHIFT. PT HAD O2 SATS DROP <82% AT THE START OF THE SHIFT W MINIMAL ACTIVITY IN BED WHERE HE WAS PLACED ON BIPAP AND REQUIRED 95-100% FIO2 TO MAINTAIN O2 SATS >90%. PT'S O2 SATS ARE IN THE HIGH 90'S WHEN HE IS ASLEEP BUT WHEN AWAKE THEY ARE IN THE LOW 90'S. PT REPORTED PAIN IN R SIDE OF RIBS AT START OF SHIFT SO HE WAS TREATED PER EMAAbel W RELEIF. TELE SHOWING SR 80-90'S THIS SHIFT. WILL REPORT TO ONCOMING RN.
--- NOTE | 2021-06-23 18:10 | NUR ---
SHIFT SUMMARY PT A&O X4. VSS. MONITOR SHOWING SR, HR 80's-90's. SPO2 > 92% ON AIRVO @ 55L, FIO2 66%. PT TOLERATING ACTIVITY AMBULATING TO CHAIR & GIVING SELF A SPONGE BATH TODAY. PT W/ REPORT OF "R RIB & BACK PAIN", MEDICATED PER EMAR W/ PRN TRAMADOL X2 TODAY W/ PT REPORT OF IMPROVEMENT. NO FURTHER EVENTS. WILL CONTINUE TO MONITOR & PROVIDE CARE UNTIL REPORT OFF TO CONTRACT NEGOTIATOR RN.
--- NOTE | 2021-06-24 05:13 | NUR ---
SHIFT SUMMARY NO ACUTE CHANGES THIS SHIFT. AXO. ON AIRVO 55L 65% ALL NIGHT, SPO2 >94%. PT HAS TOLERATED THIS WELL. PAIN MANAGEMENT IMPORTANT IN HELPING PT COUGH UP PHLEGM/MUCUS. PT HAS BEEN ABLE TO REST WELL THROUGHOUT THE SHIFT AND STATES "THIS HAS BEEN THE BEST NIGHT I HAVE FELT SINCE I WAS ADMITTED". PT AWARE THAT THE RECOVERY FROM THIS WILL TAKE AWHILE AND THAT IT IS A SLOW PROGRESSIVE PROCESS TO TITRATE OFF THE AIRVO. PT VSS. PICC IN PLACE, DRAWS. OTHERWISE, PT USING CALL LIGHT APPPROPRIATELY. BED ALARM ON.
--- NOTE | 2021-06-24 17:56 | NUR ---
SHIFT SUMMARY PT A&Ox4, VSS, SR 80'S. SPO2> 92% ON 50L 55%FiO2 VIA AIRVO. PT REPORTED NOT HAVING A BM SINCE ARRIVING TO THE HOSPITAL, THIS WAS CONSISTENT WITH CHART. GAVE PT TWO SERVINGS OF PRUNE JUICE WITH BUTTER AND APPLE JUICE. ASSISTED THE PT TO THE BSC IN HOPES IT WOULD GIVE HIM THE URGE TO HAVE A BM. THESE INTERVENTIONS WERE UNSUCCESSFUL. NOTIFIED, RESULTING IN AN ORDER FOR MIRALAX DAILY. WITH THE PRIMARY RN, THIS RN STUDENT PROVIDED PT EDUCATION ON HOW PAIN MEDICATION CAN CAUSE CONSTIPATION. TO HELP ALLEVIATE PT'S PAIN WITH OUT THE USE OF MEDICATION, REPOSITIONING, GETTING UP TO THE CHAIR, AND HEAT THERAPY WAS PROVIDED. PT REPORTED THAT THESE INTERVENTIONS WERE SUCCESSFUL.
--- NOTE | 2021-06-24 18:30 | NUR ---
THIS RN AGREES W/ STUDENT DOCUMENTATION THIS SHIFT. IN ADDITION TO STUDENT NOTE, PT REPORTING "RIB & BACK" PAIN THIS SHIFT & DENIES ABD PAIN DESPITE REPORT OF NO BM THIS HOSPITAL STAY. PT REPORTING "IT'S NORMAL FOR ME TO NOT GO FOR AWHILE, SO I GUESS I DIDN'T REALLY THINK ABOUT IT." INTERVENTIONS PER STUDENT DOCUMENTATION.
[2021-06-25 05:17] LABS: Hematocrit 27.1 % (37.0-53.0); Hemoglobin 8.4 g/dL (13.5-17.5); Mean Corpuscular HGB 30.9 pg (26.0-34.0); Mean Corpuscular Volume 100 fL (80-100); Mean Platelet Volume 9.8 fL (9.1-12.4); Platelet Count 489 K/mm3 (150-400); RDW Coefficient Variation 15.2 % (11.7-14.2); RDW Standard Deviation 55.7 fL (35.1-46.3); Red Blood Cell Count 2.72 M/mm3 (4.30-5.90); White Blood Cell Count 16.74 K/mm3 (4.00-11.30)
[2021-06-25 05:52] LABS: Albumin, Blood 2.6 g/dL (3.4-5.0); Anion Gap 4 mmol/L (6-16); Blood Urea Nitrogen 22 mg/dL (8-24); CO2, Blood 32 mmol/L (21-32); Calcium, Blood 8.5 mg/dL (8.5-10.1); Chloride, Blood 102 mmol/L (98-108); Creatinine, Blood 0.92 mg/dL (0.60-1.20); Glomerular Filtration Rate >60 (60-); Glucose, Blood 100 mg/dL (70-99); Phosphorus, Blood 3.9 mg/dL (2.5-4.9); Potassium, Blood 4.7 mmol/L (3.5-5.5); Sodium, Blood 138 mmol/L (136-145)
--- NOTE | 2021-06-25 06:06 | NUR ---
SHIFT SUMMARY NO ACUTE CHANGES THIS SHIFT. AXO. SR. VSS. STILL ON 50L 55%. LUNG SOUNDS IMPROVING. PAIN IMPROVED FROM LAST NOC SHIFT. NO BM TIS SHIFT, BUT EXTENSIVE BOWEL CARE BEING PERFORMED. OTHERWISE, PT RESTING IN BEFD QUIETELY.
--- NOTE | 2021-06-25 17:31 | NUR ---
SHIFT SUMMARY PT IS ALERT AND ORIENTED X 4, HE IS PLEASANT AND COOPERATIVE WITH CARE. SPO2 HAS MAINTAINED >90% VIA AIRVO 50L @ 48% FIO2. BP STABLE. HE HAS CONTINUED TO DENY FEELINGS OF CHEST PAIN/PRESSURE BUT COMPLAINS OF CHRONIC BACK PAIN WELL RIB PAIN. PER PATIENT REPORT HE BROKE HIS BACK A YEAR AGO. SEE EMAR FOR PAIN MANAGEMENT. REPOSITIONING, UNITERRUPTED REST, AND HEATING PAD IN PLACE ALSO FACILITATED IN PAIN MANAGEMENT. PIC LINE IN MARIO IS SALINE LOCKED. IV IN LEFT UPPER ARM ALSO SALINE LOCKED. PT WAS ABLE TO AMBULATE FROM BED TO CHAIR, CHAIR TO BED, AND BED TO COMMODE 1 PERSON SBA TO MANAGE LINES/CORDS, HE WAS STEADY ON HIS FEET DURING AMBULATION. HE UTLIZES BEDSIDE URINAL TO VOID. PT REPORTED NOT HAVING A BM IN 10 DAYS, SEE EMAR FOR BOWEL CARE. NO BM TODAY BUT PT WAS ON COMMODE AFTER SUPPOSATORY ADMINISTRATION AND WAS ABLE TO PASS GAS WHICH HE REPORTED HAD NOT HAPPENED IN A FEW DAYS. HE DENIED ABD PAIN OR DISCOMFORT AND STATED THAT HE DOES NOT FEEL NAUSEOUS. ROSALVA CANCINO ALSO GAVE PT PRUNE JUICE TO ASSIST IN BM. MEPILEX DRESSING IS IN PLACE ON RIGHT BACK AREA, DRESSING IS DRY/CLEAN. NO OTHER ACUTE CHANGES NOTED. WILL CONTINUE TO MONITOR UNTIL REPORT GIVEN. CALL LIGHT IN REACH.
[2021-06-26 03:40] LABS: Hematocrit 26.7 % (37.0-53.0); Hemoglobin 8.3 g/dL (13.5-17.5); Mean Corpuscular HGB 30.6 pg (26.0-34.0); Mean Corpuscular HGB Conc 31.1 g/dL (31.5-36.5); Mean Corpuscular Volume 99 fL (80-100); Mean Platelet Volume 9.7 fL (9.1-12.4); Platelet Count 537 K/mm3 (150-400); RDW Coefficient Variation 15.2 % (11.7-14.2); RDW Standard Deviation 54.4 fL (35.1-46.3); Red Blood Cell Count 2.71 M/mm3 (4.30-5.90); White Blood Cell Count 12.68 K/mm3 (4.00-11.30)
[2021-06-26 03:58] LABS: Albumin, Blood 2.6 g/dL (3.4-5.0); Anion Gap 4 mmol/L (6-16); Blood Urea Nitrogen 22 mg/dL (8-24); Bun/Creatinine Ratio 21.6 (12.0-20.0); CO2, Blood 32 mmol/L (21-32); Calcium, Blood 8.4 mg/dL (8.5-10.1); Chloride, Blood 101 mmol/L (98-108); Creatinine, Blood 1.02 mg/dL (0.60-1.20); Glomerular Filtration Rate >60 (60-); Glucose, Blood 89 mg/dL (70-99); Phosphorus, Blood 4.7 mg/dL (2.5-4.9); Potassium, Blood 4.6 mmol/L (3.5-5.5); Sodium, Blood 137 mmol/L (136-145)
--- NOTE | 2021-06-26 05:14 | NUR ---
SHIFT SUMMARY PT IS ALERT AND ORIENTED. THERE HAVE BEEN NO ACUTE CHANGES T/O THIS SHIFT. PT DENIES CHEST PAIN. REPORTS SOB AT TIMES. VITALS ARE STABLE AND IS ON AIRVO 50L 48% FIO2 WITH SATS ABOVE 90% FIO2. PT HAS REPORTED CHRONIC PAIN T/O THE NIGHT. HE IS USING THE URINAL AT BESIDE. CALL LIGHT IS WITHIN REACH. WILL CONTINUE TO MONITOR.
--- NOTE | 2021-06-26 16:09 | NUR ---
END OF SHIFT: DENIES CHEST PAIN, AFEBRILE, SMALL IMPROVEMENT TO AIRVO SETTINGS, 45L AT 45%. PAIN HAS BEEN CONTROLLED WITH EMAR MEDICATIONS, PATIENT CALLS APPROPRIATELY, HAS BEEN HR 80'S. PICC STILL FLUSHES WELL, BOWEL CARE GIVEN THIS AM. WILL CONTINUE TO MONITOR AT THIS TIME.
[2021-06-27 04:17] LABS: Hematocrit 26.4 % (37.0-53.0); Hemoglobin 8.3 g/dL (13.5-17.5); Mean Corpuscular HGB Conc 31.4 g/dL (31.5-36.5); Mean Corpuscular Volume 99 fL (80-100); Mean Platelet Volume 9.5 fL (9.1-12.4); Platelet Count 543 K/mm3 (150-400); RDW Coefficient Variation 15.1 % (11.7-14.2); RDW Standard Deviation 54.4 fL (35.1-46.3); Red Blood Cell Count 2.68 M/mm3 (4.30-5.90); White Blood Cell Count 12.39 K/mm3 (4.00-11.30)
--- NOTE | 2021-06-27 05:40 | NUR ---
SHIFT SUMMARY PT IS ALERT AND ORIENTED. THERE HAVE BEEN NO ACUTE CHANGES TO PT T/O THE SHIFT. VITALS ARE STABLE AND IS ON HFT 45L/45% FIO2 WITH SATS ABOVE 88%. PT DENIES CHEST PAIN OR SOB. PT HAS NOT HAD A BM THIS SHIFT. HE HAS BEEN REPORTING PAIN 7/10 AND MEDICATED PER EMAR T/O THE NIGHT. HE IS ABLE TO TRANSFER FROM CHAIR TO BED WITH SOME ASSIST AND IS USING THE URINAL AT BEDSIDE. CALL LIGHT IS WITHIN REACH. WILL CONTINUE TO MONITOR.
--- NOTE | 2021-06-27 16:10 | NUR ---
END OF SHIFT SUMMARY: PATIENT STILL ON AIRVO, 40L AT 45%. PATIENT ENGANGING IN FLUTTER AND INCENTIVE SPIROMETRY. PATIENT HAS BEEN CONTROLLED WITH CURRENT REGIIMENT OF PAIN MEDS PER MAY. PATIENT DENIES CHEST PAIN/PRESSURE, OR SOB. PATIENT HAS HAD GREAT URINE OUTPUT AND ORAL INTAKE. APPETITE HAS BEEN GREAT WELL. PATIENT SELF REPOSITIONS IN BED AND SBA TO RECLINER. PICC WAS FLUSHED WITH 30 mL OF NS, AND CAPS CHANGED. BLOOD PRESSURE HAS BEEN NORMOTENSIVE FOR PATIENT, AND RATE CONTROLLED. LUNGS SOUNDS BETTER THAN PREVIOUS DAY. ROCEPHIN HAS BEEN DC'D WILL CONTINUE TO MONITOR UNTIL SHIFT CHANGE.
--- NOTE | 2021-06-28 05:27 | NUR ---
SHIFT SUMMARY PT IS ALERT AND ORIENTED. THERE HAVE BEEN NO ACUTE CHANGES T/O THE SHIFT. VITALS ARE STABLE AND PT IS CURRENTLY ON HFT 45L 45% FIO2 WITH SATS ABOVE 90%. PT DENIES CHEST PAIN. PT DOES REPORT PAIN 7/10 CHRONIC PAIN IN RIGHT SIDE AND BACK. RELIEF HAS BEEN NO LESS THAN 5/10 FROM MEDS PER ORDER. PT USING URINAL AT BEDSIDE. CALL LIGHT IS WITHIN REACH.
--- NOTE | 2021-06-28 16:54 | NUR ---
Shift Summary Pt remains A&Ox4. VSS. Afebrile. Frequent c/o R back/rib pain- multiple pain meds administered, see emar. AUO. No BM. Tolerating current diet. Weaned off airvo- currently tolerating 9L NC, no s/s of respiratory distress. Frequent rounds to ensure pt safety. Encouraged to reposition q2hrs and pressure points offloaded to prevent pressure ulcers. Pt in no apparent distress at this time. Will continue to monitor until transfer of care to oncoming RN.
--- NOTE | 2021-06-28 21:30 | NUR ---
Assumed care at 1900. VSS on 9L nasal canula sating 90-94%, desats with movement and talking. Tylenol given for pain in back. Tums given for indegestion. Will continue to monitor.
--- NOTE | 2021-06-29 04:12 | NUR ---
Credit Products Officer Note: Pt is A&O, pleasant with cares. VSS on 8-9L nasal canula overnight. PRN pain meds given for chronic back pain, see MAR. Pt complained of heart burn, prn tums given. Pt slept well overnight.
--- NOTE | 2021-06-29 18:32 | NUR ---
Shift Summary Pt remains A&Ox4. VSS. Afebrile. Continues to c/o R rib/back pain- see EMAR for pain med administration. AUO. No BM. Tolerating current diet. Weaned supplemental O2 to 6-7L NC, tolerating current settings. Continued to encourage cough/deep breathing exercises, IS use, and frequent ambulation. Frequent rounds to ensure pt safety. Encouraged pt to reposition q2hrs and pressure points offloaded to prevent pressure ulcers. No apparent distress at this time. Will continue to monitor until transfer of care to oncoming RN.
--- NOTE | 2021-06-30 06:04 | NUR ---
SHIFT SUMMARY ASSUMED CARE OF PT AT 1900. PT IS A/OX4. HEART SOUNDS REGULAR. LUNG SOUNDS DIMINISHED AT THE BASES. PT REMAINED ON 6L NC T/O THE NIGHT. SATURATIONS 90% AND ABOVE. PT DENIES SOB BUT HAS PAIN ON HIS R SIDE. PT REQUESTED PAIN MEDICATION AND WANTED THE IV PAIN MEDICATIONS OVER THE ORAL. THIS NURSE EDUCATED PT ABOUT HOW HE WILL NOT HAVE IV PAIN MEDICATIONS AT HOME AND THIS SHOULD ONLY BE USED FOR SEVERE PAIN. PT AGREED AND LATER EXPLAINED TO NURSE HE SAID HE WANTED TO JUST HAVE MUCH RELEIF HE COULD BEFORE HE GOES HOME. PT STATED HE IS SAD ABOUT LOOSING HIS JOB AND ABOUT HOW HIS BROTHER OF SUICIDE THREE MONTHS AGO. PT USED THE PO MEDICATION T/O THE NIGHT FOR PAIN ON HIS R SIDE AND BACK. BACK PAIN WHICH HE STATES HE ALWAYS HAS. NO OTHER EVENTS DURING THE NIGHT.
--- NOTE | 2021-06-30 11:23 | NUR ---
Patient is lying in bed and alert. He immediately tells me about his addiction to drugs, his "terrible friends" and his challenging circumsatances. He then shares about the of his brother 4 mos ago and his struggle to process the pain. We discuss the hard work of bereavement, healthier ways of coping and the importance of self-care. We talk about his 14y/o dtr and her need to have her dad back and in a healthy state of being. I normalize pt's experience, reinforce helpful attitudes and provide therapeutic listening, grief support, gentle assistant counsel and a calming presence. Pt responds well and shows signs of increased hope. I will continue to remain available to patient and family.
--- NOTE | 2021-06-30 17:24 | NUR ---
Shift Summary Pt remains A&Ox4. VSS. Continues to have R back/rib pain- see emar for med administration. Afebrile. AUO. No BM. Tolerating current diet. Weaned to 3L NC- no s/s of respiratory distress. Possible discharge home with home health and supplemental O2. Frequent rounds to ensure pt safety. Pt encouraged to reposition q2hrs and pressure points offloaded to prevent pressure ulcers, pt verbalized understanding. No apparent distress noted at this time. Will continue to monitor until transfer of care to oncoming RN.
--- NOTE | 2021-07-01 06:03 | NUR ---
SHIFT SUMMARY ASSUMED CARE OF PT AT 1900. PT IS A/OX4. HEART SOUNDS REGULAR. LUNG SOUNDS DIMINISHED IN THE BASES. PT HAD TO BE BUMPED TO 6L NC WHILE SLEEPING, BUT WAS TITRATED BACK DOWN TO 4L. SATURATIONS 90-93%. PT STILL COMPLAINS OF R SIDED LUNG PAIN BUT HE SAYS THAT IT IS MOSTLY HIS BACK THAT HURTS, WHICH IS AN OLD INJURY. PT HAD NO OTHER EVENTS, SLEPT FOR A COUPLE HOURSE DURING THE NIGHT.
--- NOTE | 2021-07-01 11:05 | NUR ---
Patient immediately talks about his life struggles and asks about ways to take a more healthy path. We talk about addiction programs, support groups, churches, relocating away from destructive people and spiritual practices. Pt is hopeful about setting new goals, seeking out healthier people and doing the hard work of positive change. I reinforce helpful attitudes and practices, and provide gentle prevocational/rehabilitation counselor, spiritual guidance and prayer. We work on a good spiritual care plan for after d/c. Pt displays evidence of increased hope and resolve for a healthier future. I will continue to remain available to pt and family.
--- NOTE | 2021-07-01 18:34 | NUR ---
SHIFT SUMMARY NO ACUTE EVENTS THIS SHIFT, PT IS ALERT AND ORIENTED AND COOPERATIVE WITH CARE. PT ON 3.5-5 L VIA NASAL CANNULA. PT'S O2 SATURATION WILL DROP TO MID 80s WHEN EATING OR TALKING. O2 BUMPED TO 5 L AT MEALTIME. PT TOLERATED ORAL INTAKE WELL. NO SIGNS OF ACUTE DISTRESS THIS SHIFT.
--- NOTE | 2021-07-01 21:40 | NUR ---
CARE ASSUMPTION: PATIENT RESTING IN BED AT SHIFT CHANGE. RT GAVE TREATMENT. VSS ON 5L. PATIENT IS LOOKING FORWARD TO DISCHARGING TO HIS MOTHER'S HOUSE WHERE HIS TEEN DAUGHTER ALSO LIVES. EDUCATED ON PULSE OXIMETER USE AT HOME PATIENT WAS CONCERNED HOW TO MONITOR HIS O2 ONCE DISCHARGED. MEDICATED PER EMAR. PLEASANT AND USES CALL LIGHT APPROPRIATELY.
--- NOTE | 2021-07-01 23:17 | NUR ---
PATIENT TRANSFER: REPORT GIVEN TO SKYE GOODMAN RN. PATIENT TRANSFERRED VIA W/C TO [place] [id number] AT 2325.
[2021-07-02 05:23] LABS: Hematocrit 29.3 % (37.0-53.0); Hemoglobin 9.1 g/dL (13.5-17.5); Mean Corpuscular HGB Conc 31.1 g/dL (31.5-36.5); Mean Corpuscular Volume 100 fL (80-100); Mean Platelet Volume 9.5 fL (9.1-12.4); Platelet Count 537 K/mm3 (150-400); RDW Coefficient Variation 15.9 % (11.7-14.2); RDW Standard Deviation 57.1 fL (35.1-46.3); Red Blood Cell Count 2.94 M/mm3 (4.30-5.90); White Blood Cell Count 8.43 K/mm3 (4.00-11.30)
[2021-07-02 06:11] LABS: Anion Gap 5 mmol/L (6-16); Blood Urea Nitrogen 27 mg/dL (8-24); Bun/Creatinine Ratio 24.3 (12.0-20.0); CO2, Blood 30 mmol/L (21-32); Chloride, Blood 104 mmol/L (98-108); Creatinine, Blood 1.11 mg/dL (0.60-1.20); Glomerular Filtration Rate >60 (60-); Glucose, Blood 98 mg/dL (70-99); Potassium, Blood 4.8 mmol/L (3.5-5.5); Sodium, Blood 139 mmol/L (136-145)
--- NOTE | 2021-07-02 06:36 | NUR ---
SHIFT SUMMARY: PATIENT TRANSFERED FROM PCU IN STABLE CONDITION. REQUIRED 5L O2 TO RECOVER FROM TRANSFER. TURNED DOWN TO 3L AND PATIENT MAINTAIN SAT > 92%. SHORTLY AFTER TRANSFER TELE REPORTED CHANGE IN RYHTYM. NEW ONSET ST DEPRESSION. MD NOTIFIED. EKG ORDERED. "NORMAL EKG". PATIENT ASYMPTOMATIC. CHRONIC PAIN MANAGED THROUGH EMAR. WCTM.
--- NOTE | 2021-07-02 09:00 | NUR ---
pt sitting up in bed awake, a/ox3, pleasant and cooperative with care, follows commands well, denies pain at this time, states his breathing is better, lungs are clear in upper crum, dim in bases, currently on 3 liters 02 via n/c, resp even and unlabored at rest, no cough noted, but reports a productive cough of clear sputum, hrr, tele in place running sr per monitor, see strip, no edema noted, ppp+1, cap refill <3sec, vs stable, afebrile, iv site is clear and patent to delai, btx4, abd flat soft nontender, voids without diff, skin c/w/d, maew, [place], call light in reach.
--- NOTE | 2021-07-02 18:13 | NUR ---
pt encouraged to get up to chair for meals, he was agreeable, medicated once for pain, otherwise uneventful day. no complaints or needs, call light in reach.
--- NOTE | 2021-07-03 05:06 | NUR ---
SHIFT SUMMARY: PT IS ALERT AND ORIENTED. PT IS CALM AND COOPERATIVE WITH CARE. PT CALLS APPROPRIATELY. PT IS INDEPENDENT IN THE ROOM. PT REPORTS PAIN ON ONE OCCASION, GAVE PRN OXYCODONE. PT REPORTS SOB WITH EXERTION, CURRENTLY ON 5 L O2 KEEPING SATS > 90%. PT DENIES NAUSEA AND VOMITING. PT SLEPT MUCH OF THE NIGHT WHEN NOT DISTURBED. PT HOPING FOR DISCHARGE SOON. NO ACUTE CHANGES OR COMPLICATIONS THIS SHIFT. BED IN LOW POSITION, CALL LIGHT WITHIN REACH. WILL REPORT TO DAY NURSE.
--- NOTE | 2021-07-03 17:53 | NUR ---
SHIFT SUMMARY: PATIENT IS ALERT AND ORIENTED. HE IS CALM AND COOPERATIVE WITH CARE AND CALLS APPROPRIATELY. PT IS INDEPENDENT IN THE ROOM. HE REPORTS HAVING PAIN IN HIS RIGHT RIBS/BACK SO I GAVE 1 DOSE OF HIS PRN OXYCODONE. PT WORKED WITH PHYSICAL THERAPY TODAY AND DID VERY WELL. HE IS CURRENTLY ON 5 L O2 NC, WHICH KEEPS HIS O2 SATS ABOVE 90%. PT RELAXES IN BED WATCHING TV FOR MOST OF THE DAY. BED IS IN LOW POSITION. CALL LIGHT IS WITHIN REACH. WILL GIVE REPORT TO NIGHT NURSE.
--- NOTE | 2021-07-04 04:21 | NUR ---
SUMMARY: PT IS A/OX4, CALLS APPROPRIATELY TO SPECIFY NEEDS AND IS INDEPENDENT IN ROOM. HE USES URINAL FOR WHILE IN BED AND OCCASIONALLY CALLS FOR SBA TO TOILET WHEN FEELING SOB W/EXERTION. HE REMAINS ON 4L HUMIDIFIED O2 W/SPO2 WNL. LS CLEAR AND DIM IN BASES. TUMS RECIEVED PRN FOR C/O INDIGESTION AND OXYCODONE PROVIDED APPROX Q6H PRN FOR TOLERABLE RELIEF OF CHRONIC "ALL OVER" PAIN. NO ACUTE CHANGES, VSS/AFEBRILE. WCTM AND REPORT TO DAY RN.
--- NOTE | 2021-07-04 10:43 | NUR ---
WHILE COMPLETING REPOSITIONING AND CATH CARE PT AWOKE AND STAYED AWAKE. PT ABLE TO ANSWER YES/NO QUESTIONS AT THIS TIME BUT DOES NOT RESPOND TO ANY OTHER QUESTIONS. PT ABLE TO TAKE HER ORAL MEDICATIONS AND EAT SOME APPLESAUCE AND DRINK SOME WATER AND SPRITE. CONTINUED TO HOLD METHADONE AND INSULIN GLARGINE.
--- NOTE | 2021-07-04 18:06 | NUR ---
SHIFT SUMMARY: PATIENT IS ALERT AND ORIENTED. HE IS CALM AND COOPERATIVE WITH CARE AND CALLS APPROPRIATELY. PT IS INDEPENDENT IN THE ROOM. PT MEDICATED WITH OXYCODONE FOR HIS BACK PAIN. HE IS CURRENTLY ON 5 L HUMIDIFIED O2 VIA NC, WHICH KEEPS HIS O2 SATS ABOVE 90%. PT RELAXES IN BED WATCHING TV FOR MOST OF THE DAY. DISCHARGE IS ANTICIPATED FOR TOMORROW. BED IS IN LOW POSITION. CALL LIGHT IS WITHIN REACH. WILL GIVE REPORT TO NIGHT NURSE.
--- NOTE | 2021-07-05 04:25 | NUR ---
LATEX CASTER SUMMARY PT ADMIT W/BILATERAL PNEUMONIA. A/OX4. PT ABLE TO MAKE NEEDS KNOWN. PT SOB AND TIRES EASILY W/EXERTION. ON 4L HUMID OXYGEN NC. PT CO OF RT FLANK PAIN W/DEEP BREATHS. EXPIRATORY WHEEZES AND DIMINISHED BREATH SOUNDS IN LOWER LOBES. C/O SHOULDER PAIN. 5MG OF OXY GIVEN FOR PAIN. PAIN CONTROLLED. TUMS FOR INDIGESTION. PT EXPRESSED CONCERNS ABOUT READINESS TO GO HOME. PT INDEPENDENT IN ROOM, USING URINAL. CALL LIGHT IN REACH.
[2021-07-05] MEDS ORDERED: GUAI600T33 PO (11:13)
[2021-07-05] MEDS ORDERED: METO25 PO (11:14)
[2021-07-05] MEDS ORDERED: MIRALAX17 GM PO (11:14)
[2021-07-05] MEDS ORDERED: EUTHYROX100 MCG PO (11:15)
[2021-07-05] MEDS ORDERED: Percocet 5-3251 EACH PO (16:13)
[2021-07-05] MEDS ORDERED: NASAL SPRAY88 ML (16:17)
--- NOTE | 2021-07-05 17:09 | NUR ---
DISCHARGE SUMMARY: PT'S AUNT CAME TO PICK HIM UP FOR TRANSPORT HOME. HIS IV, TELEMETRY, AND CONTINUOUS PULSE OX WERE DC'D. DISCHARGE INSTRUCTIONS WERE GIVEN TO PT. PT WAS INSTRUCTED ON THE USE OF O2 AND EDUCATED ABOUT HIS MEDICATIONS. PT SENT WITH A HARD-COPY SCRIPT FOR PERCOCET. A FOLLOW-UP APPOINTMENT WAS MADE WITH HIS PCP. REFERRAL FOR PULMONARY THERAPY WAS SENT. PORTABLE O2 WAS DELIVERED AND APPLIED TO PT. PT WAS TAKEN OUT TO AUNT'S CAR VIA WHEELCHAIR.
--- NOTE | 2021-07-05 17:18 | NUR ---
DISCHARGE NOTE: PT DISCHARGED HOME TODAY. PT SENT HOME WITH HOME O2. EDUCATED PT ON HOME O2 SAFETY. PT VU. PT ASSISTED WITH PACKING UP BELONGINGS AND SENT WITH PT AT TIME OF DC.
== END 2021-07-05 17:08 | disposition home or self-care (01) | DRG 871 ==
LOC: ER 03:47 → MEDS 05:24 → ICUW 05:24 → MEDS 06-17 18:30 → PCU 06-21 19:04 → MEDS 07-01 23:33
PROVIDERS: Family Medicine; Internal Medicine; Internal Medicine Critical Care Medicine; Student in an Organized Health Care Education/Training Program; ADMIT Internal Medicine
PROC: 0BH17EZ Insertion of Endotracheal Airway into Trachea, Via Natural or Artificial Opening (ICD-10-PCS; principal; 2021-06-15)
PROC: 5A1945Z Respiratory Ventilation, 24-96 Consecutive Hours (ICD-10-PCS; 2021-06-15)
PROC: 5A0935A Assistance with Respiratory Ventilation, Less than 24 Consecutive Hours, High Flow/Velocity Cannula (ICD-10-PCS; 2021-06-15)
PROC: 5A09357 Assistance with Respiratory Ventilation, Less than 24 Consecutive Hours, Continuous Positive Airway Pressure (ICD-10-PCS; 2021-06-15)
PROC: 3E03329 Introduction of Other Anti-infective into Peripheral Vein, Percutaneous Approach (ICD-10-PCS; 2021-06-16)
PROC: 5A0955A Assistance with Respiratory Ventilation, Greater than 96 Consecutive Hours, High Flow/Velocity Cannula (ICD-10-PCS; 2021-06-20)
PROC: 0W993ZX Drainage of Right Pleural Cavity, Percutaneous Approach, Diagnostic (ICD-10-PCS; 2021-06-20)
DX: A40.3 Sepsis due to Streptococcus pneumoniae (principal); R65.21 Severe sepsis with septic shock; J96.01 Acute respiratory failure with hypoxia; J13 Pneumonia due to Streptococcus pneumoniae; N17.9 Acute kidney failure, unspecified; E03.9 Hypothyroidism, unspecified; Z20.822 Contact with and (suspected) exposure to COVID-19; F15.10 Other stimulant abuse, uncomplicated; F17.210 Nicotine dependence, cigarettes, uncomplicated; N18.2 Chronic kidney disease, stage 2 (mild); I10 Essential (primary) hypertension; E87.6 Hypokalemia; K59.00 Constipation, unspecified; G89.4 Chronic pain syndrome; D64.9 Anemia, unspecified
CPT/HCPCS: 0241U; 31500; 31720; 32555; 36415; 36569; 36600; 51702; 71045; 71046; 71260; 80047; 80048; 80053; 80069; 81001; 82042; 82375; 82728; 82803; 82945; 83540; 83550; 83605; 83615; 83735; 83880; 83986; 84100; 84145; 84157; 84436; 84443; 84484; 85014; 85025; 85027; 85610; 85730; 87040; 87070; 87077; 87185; 87186; 87205; 89051; 93005; 93010; 93306; 93308; 93321; 94002; 94003; 94640; 94660; 94664; 94760; 94761; 94762; 97110; 97162; 97165; 97530; 97535; 99285-25; A9270; C1751; C1769; C9113; J0295; J0610; J0692; J0696; J1650; J2060; J2250; J2270; J2543; J3010; J3370; J3480; J7030; J7040; J7050; J7060; Q9967

== ENCOUNTER 2022-02-28 22:05 | Emergency (ER) | payer OTHER ==
[~2022-02-28] VITALS: Ht 188 cm; Wt 83.9 kg
[~2022-02-28 22:05] MED LIST changes: +EUTHYROX100 MCG PO; +GUAI600T33 PO; +METO25 PO; +MIRALAX17 GM PO; +NASAL SPRAY88 ML; +Percocet 5-3251 EACH PO; +SULTRIDS PO
[2022-02-28] MEDS ORDERED: INDO50 PO (23:54)
[2022-02-28] MEDS ORDERED: SULTRIDS PO (23:54)
== END 2022-03-01 00:19 | disposition home or self-care (01) ==
LOC: ER 22:05
DX: L03.116 Cellulitis of left lower limb (principal); F17.200 Nicotine dependence, unspecified, uncomplicated; Z79.899 Other long term (current) drug therapy
CPT/HCPCS: 99283; A9270

== ENCOUNTER → 2022-03-15 | Outpatient (CLI) | payer OTHER ==
[~2022-03-15] MED LIST changes: +INDO50 PO
[2022-03-15 17:08] LABS: BASOPHILS ABSOLUTE AUTO 0.11 K/mm3 (0.00-0.23); BASOPHILS PERCENT AUTO 1 % (0-2); EOSINOPHILS ABSOLUTE AUTO 0.66 K/mm3 (0.00-0.68); EOSINOPHILS PERCENT AUTO 4 % (0-6); Hemoglobin 13.6 g/dL (13.5-17.5); IMMATURE GRAN ABSOLUTE AUTO 0.29 K/mm3 (0.00-0.10); IMMATURE GRAN PERCENT AUTO 2 % (0-1); LYMPHOCYTES ABSOLUTE AUTO 2.17 K/mm3 (0.84-5.20); LYMPHOCYTES PERCENT AUTO 13 % (21-46); MONOCYTES ABSOLUTE AUTO 0.85 K/mm3 (0.16-1.47); MONOCYTES PERCENT AUTO 5 % (4-13); Mean Corpuscular HGB Conc 32.4 g/dL (31.5-36.5); Mean Corpuscular Volume 96 fL (80-100); Mean Platelet Volume 9.9 fL (9.1-12.4); NEUTROPHILS ABSOLUTE AUTO 12.82 K/mm3 (1.96-9.15); NEUTROPHILS PERCENT AUTO 76 % (41-73); Platelet Count 376 K/mm3 (150-400); RDW Coefficient Variation 14.2 % (11.7-14.2); RDW Standard Deviation 49.9 fL (35.1-46.3); Red Blood Cell Count 4.39 M/mm3 (4.30-5.90)
[2022-03-15 17:20] LABS: Albumin, Blood 4.2 g/dL (3.4-5.0); Albumin/Globulin Ratio 1.2 (0.8-1.8); Bilirubin, Total 0.2 mg/dL (0.1-1.0); Bun/Creatinine Ratio 9.9 (12.0-20.0); Calcium, Blood 8.9 mg/dL (8.5-10.1); Creatinine, Blood 1.41 mg/dL (0.60-1.20); Globulin, Blood 3.6 g/dL (2.2-4.0); Potassium, Blood 4.3 mmol/L (3.5-5.5); Total Protein, Blood 7.8 g/dL (6.4-8.2)
== END | disposition home or self-care (01) ==
LOC: LAB SHORT 17:03
PROVIDERS: Emergency Medicine
DX: R53.83 Other fatigue (principal)
CPT/HCPCS: 80053; 83690; 85025

== ENCOUNTER 2022-05-25 14:36 | Emergency (ER) | payer OTHER ==
[~2022-05-25] VITALS: Ht 188 cm; Wt 86.2 kg
[~2022-05-25 14:36] MED LIST changes: +CEPH500 PO
[2022-05-25] MEDS ORDERED: CEPH500 PO (16:27)
[2022-05-25] MEDS ORDERED: SULTRIDS PO (16:27)
== END 2022-05-25 16:48 | disposition home or self-care (01) ==
LOC: ER 14:36
DX: L03.115 Cellulitis of right lower limb (principal); R05.9 Cough, unspecified; J44.9 Chronic obstructive pulmonary disease, unspecified; I10 Essential (primary) hypertension; E03.9 Hypothyroidism, unspecified; F17.200 Nicotine dependence, unspecified, uncomplicated; Z99.81 Dependence on supplemental oxygen; Z79.899 Other long term (current) drug therapy
CPT/HCPCS: 71046; 96374; 99283-25; A9270; J1885

== ENCOUNTER 2023-01-08 00:48 | Emergency (ER) | payer OTHER ==
[~2023-01-08] VITALS: Ht 182.9 cm; Wt 90.7 kg
[2023-01-08 02:12] VITALS: BP 175/122
[2023-01-08] MEDS ORDERED: SULTRIDS PO ×2 (03:45→04:12)
== END 2023-01-08 04:19 | disposition home or self-care (01) ==
LOC: ER 00:48
DX: L02.512 Cutaneous abscess of left hand (principal); L03.114 Cellulitis of left upper limb; E03.9 Hypothyroidism, unspecified; I10 Essential (primary) hypertension; J44.9 Chronic obstructive pulmonary disease, unspecified; F17.200 Nicotine dependence, unspecified, uncomplicated; Z79.899 Other long term (current) drug therapy
CPT/HCPCS: 10060; 96372-59; 99282-25; A9270; J1885

== ENCOUNTER 2024-02-14 05:10 | Emergency (ER) | payer OTHER ==
[~2024-02-14] VITALS: Ht 182.9 cm; Wt 83.9 kg
[2024-02-14] MEDS ORDERED: Lactated Ringer's 1,000 ML IV ONE (05:25)
[2024-02-14 05:43] LABS: BASOPHILS ABSOLUTE AUTO 0.07 K/mm3 (0.00-0.23); BASOPHILS PERCENT AUTO 1 % (0-2); EOSINOPHILS ABSOLUTE AUTO 0.12 K/mm3 (0.00-0.68); EOSINOPHILS PERCENT AUTO 1 % (0-6); Hemoglobin 10.7 g/dL (13.5-17.5); IMMATURE GRAN ABSOLUTE AUTO 0.07 K/mm3 (0.00-0.10); IMMATURE GRAN PERCENT AUTO 1 % (0-1); LYMPHOCYTES ABSOLUTE AUTO 1.02 K/mm3 (0.84-5.20); LYMPHOCYTES PERCENT AUTO 11 % (21-46); MONOCYTES ABSOLUTE AUTO 0.41 K/mm3 (0.16-1.47); MONOCYTES PERCENT AUTO 5 % (4-13); Mean Corpuscular HGB 31.2 pg (26.0-34.0); Mean Corpuscular HGB Conc 33.4 g/dL (31.5-36.5); Mean Corpuscular Volume 93 fL (80-100); Mean Platelet Volume 9.8 fL (9.1-12.4); NEUTROPHILS ABSOLUTE AUTO 7.44 K/mm3 (1.96-9.15); NEUTROPHILS PERCENT AUTO 81 % (41-73); Platelet Count 247 K/mm3 (150-400); RDW Coefficient Variation 14.7 % (11.7-14.2); RDW Standard Deviation 50.4 fL (35.1-46.3); Red Blood Cell Count 3.43 M/mm3 (4.30-5.90); White Blood Cell Count 9.13 K/mm3 (4.00-11.30)
[2024-02-14 06:05] LABS: Albumin, Blood 4.6 g/dL (3.4-5.0); Albumin/Globulin Ratio 1.5 (0.8-1.8); Bilirubin, Total 0.4 mg/dL (0.1-1.0); Bun/Creatinine Ratio 12.1 (12.0-20.0); Creatinine, Blood 1.4 mg/dL (0.60-1.20); Globulin, Blood 3.1 g/dL (2.2-4.0); Potassium, Blood 4.2 mmol/L (3.5-5.5); Total Protein, Blood 7.7 g/dL (6.4-8.2)
[2024-02-14 11:32] VITALS: BP 156/99
[2024-02-14] MEDS ORDERED: Ibuprofen 600 MG Tab PO ONE (11:50)
[2024-02-14] MEDS ORDERED: Acetaminophen 500 MG Tab PO ONE (11:50)
== END 2024-02-14 12:37 | disposition home or self-care (01) ==
LOC: ER 05:10
PROVIDERS: Student in an Organized Health Care Education/Training Program
DX: T68.XXXA Hypothermia, initial encounter (principal); J44.9 Chronic obstructive pulmonary disease, unspecified; I10 Essential (primary) hypertension; E03.9 Hypothyroidism, unspecified; F17.200 Nicotine dependence, unspecified, uncomplicated; Z79.899 Other long term (current) drug therapy
CPT/HCPCS: 73502; 80053; 85025; 99284-25; A9270; J7120

== ENCOUNTER 2024-03-01 17:22 | Inpatient (IN) | payer OTHER ==
[~2024-03-01] VITALS: Ht 188 cm; Wt 79.6 kg
[~2024-03-01 17:22] MED LIST changes: -ACET500 PO; -AMOCLA875 PO; -BUPROPION HCL200 M2 PO; -Calcium Carbon500 MG PO; -DOCUZEN 8.6-501 EACH PO; -DULERA 100 MCG/13 GM INH; -EUTHYROX50 MCG PO; -GABA300 PO; -LACT PO; -LOSA25 PO; -METO25; -Prednisone20 MG PO; -Vitamin D1000 UNI1 PO
[2024-03-01] MEDS ORDERED: BUPROPION HCL200 M2 PO (18:02)
[2024-03-01] MEDS ORDERED: GABA300 PO (18:02)
[2024-03-01] MEDS ORDERED: Albuterol 2.5 MG/3 ML VIAL INH SCH (18:15)
[2024-03-01] MEDS ORDERED: Ipratropium Bromide INH 0.02% 0.5 mg/2.5ML Vial INH SCH (18:15)
[2024-03-01 19:48] LABS: Source, Urine Clean Catch
[2024-03-01 19:59] LABS: Bilirubin, Urine Neg (Neg); Blood, Urine Neg (Neg); Glucose Qualitative, Urine Neg (Neg); Ketones, Urine Neg (Neg); Leukocyte Esterase, Urine Neg (Neg); Nitrite, Urine Neg (Neg); Protein, Urine 1+ (Neg); Specific Gravity, Urine 1.025 (1.003-1.022); Urobilinogen, Urine NORM (Normal)
[2024-03-01 20:04] LABS: Appearance, Urine Clear (Clear); Color, Urine Yellow (P-Yellow)
[2024-03-01] MEDS ORDERED: Cefepime HCl 2,000 MG in NS 100 ML IV ONE ×2 (20:15→23:30)
[2024-03-01] MEDS ORDERED: Vancomycin HCL 2,000 MG in NS 500 ML IV ONE (20:35)
[2024-03-01] MEDS ORDERED: FLU VACC TS2024-25(6MOS UP)/PF 45 MCG/0.5 ML SYRINGE IM ONE (22:35)
[2024-03-01] MEDS ORDERED: Ondansetron HCl 2 MG / ML 2ML Vial IV PRN (22:40)
[2024-03-01] MEDS ORDERED: NS 1,000 ML IV ONE (22:40)
[2024-03-01] MEDS ORDERED: Ipratropium/Albuterol SulF 2.5-0.5MG/3 ML Amp INH PRN (22:40)
[2024-03-01] MEDS ORDERED: Enoxaparin 40 MG/0.4 ML SYR SC SCH (23:00)
[2024-03-01] MEDS ORDERED: MethylPREDNISolone Sod Succ 125 MG Vial IV SCH (23:00)
[2024-03-02 00:10] LABS: Influenza A, PCR NEGATIVE (NEGATIVE); Influenza B, PCR NEGATIVE (NEGATIVE); Resp Syncytial Virus, PCR NEGATIVE (NEGATIVE); SARS-Cov-2 (COVID-19) PCR, MMC NEGATIVE (NEGATIVE)
[2024-03-02] MEDS ORDERED: METO25 (00:13)
[2024-03-02 00:26] VITALS: BP 152/88
[2024-03-02] MEDS ORDERED: Azithromycin 500 MG in NS 250 ML IV SCH (00:30)
[2024-03-02 02:58] VITALS: BP 134/91
[2024-03-02 05:06] LABS: U Amphetamine Screen DETECTED; U Barbituate Screen Not Detected; U Benzodiazapine Screen Not Detected; U Buprenorphine Screen Not Detected; U Cannabinoids Screen DETECTED; U Cocaine Screen Not Detected; U Methadone Screen Not Detected; U Methamphetamine Screen DETECTED; U Opiates Screen Not Detected; U Oxycodone Screen Not Detected; U Phencyclidine Screen Not Detected
[2024-03-02 06:50] LABS: BASOPHILS ABSOLUTE AUTO 0.03 K/mm3 (0.00-0.23); BASOPHILS PERCENT AUTO 0 % (0-2); EOSINOPHILS PERCENT AUTO 0 % (0-6); Hematocrit 32.7 % (37.0-53.0); Hemoglobin 10.2 g/dL (13.5-17.5); IMMATURE GRAN ABSOLUTE AUTO 0.12 K/mm3 (0.00-0.10); IMMATURE GRAN PERCENT AUTO 1 % (0-1); LYMPHOCYTES ABSOLUTE AUTO 0.97 K/mm3 (0.84-5.20); LYMPHOCYTES PERCENT AUTO 7 % (21-46); MONOCYTES ABSOLUTE AUTO 0.16 K/mm3 (0.16-1.47); MONOCYTES PERCENT AUTO 1 % (4-13); Mean Corpuscular HGB 30.8 pg (26.0-34.0); Mean Corpuscular HGB Conc 31.2 g/dL (31.5-36.5); Mean Corpuscular Volume 99 fL (80-100); Mean Platelet Volume 9.9 fL (9.1-12.4); NEUTROPHILS ABSOLUTE AUTO 13.36 K/mm3 (1.96-9.15); NEUTROPHILS PERCENT AUTO 91 % (41-73); Platelet Count 314 K/mm3 (150-400); RDW Coefficient Variation 15.9 % (11.7-14.2); RDW Standard Deviation 57.7 fL (35.1-46.3); Red Blood Cell Count 3.31 M/mm3 (4.30-5.90); White Blood Cell Count 14.64 K/mm3 (4.00-11.30)
[2024-03-02 07:30] LABS: Albumin, Blood 3.7 g/dL (3.4-5.0); Albumin/Globulin Ratio 0.9 (0.8-1.8); Bilirubin, Total 0.4 mg/dL (0.1-1.0); Bun/Creatinine Ratio 15.9 (12.0-20.0); Creatinine, Blood 1.07 mg/dL (0.60-1.20); Potassium, Blood 4.6 mmol/L (3.5-5.5); Total Protein, Blood 7.7 g/dL (6.4-8.2)
[2024-03-02 07:37] VITALS: BP 141/82
[2024-03-02] MEDS ORDERED: Acetaminophen 500 MG Tab PO PRN (07:50)
[2024-03-02] MEDS ORDERED: Polyethylene Glycol 3350 17 gm PO PRN (07:55)
[2024-03-02] MEDS ORDERED: Vancomycin HCL 1,250 MG in NS 250 ML IV SCH (09:00)
[2024-03-02] MEDS ORDERED: Lactobacil 2-S.Thermo-Bifido 1 1 Cap PO SCH (09:00)
[2024-03-02] MEDS ORDERED: CefTRIAXone Sodium 1,000 MG in NS 100 ML IV SCH (09:00)
[2024-03-02] MEDS ORDERED: Cholecalciferol 1000 Unit Tablet (=25MCG) PO SCH (09:00)
[2024-03-02 16:20] VITALS: BP 158/95
[2024-03-02] MEDS ORDERED: Calcium Carbonate 500 MG Tab Chew PO PRN (17:10)
[2024-03-02 20:05] VITALS: BP 167/91
[2024-03-02] MEDS ORDERED: Docusate Sodium/Senna 1 Tab PO SCH (21:00)
[2024-03-02] MEDS ORDERED: NS 250 ML IV PRN (21:45)
[2024-03-03 02:55] VITALS: BP 139/97
[2024-03-03 07:34] VITALS: BP 139/99
[2024-03-03] MEDS ORDERED: Levothyroxine Sodium 0.05 MG Tab PO SCH (08:00)
[2024-03-03] MEDS ORDERED: Doxycycline Hyclate 100 MG TAB PO SCH (09:00)
[2024-03-03] MEDS ORDERED: Cyclobenzaprine HCl 10 MG Tab PO PRN (15:50)
[2024-03-03] MEDS ORDERED: Ketorolac Tromethamine 15mg Vial IV PRN (15:55)
[2024-03-03 16:03] VITALS: BP 147/99
[2024-03-03 19:51] VITALS: BP 147/97
[2024-03-04 02:46] VITALS: BP 147/111
[2024-03-04 05:38] LABS: Hematocrit 31.7 % (37.0-53.0); Hemoglobin 9.9 g/dL (13.5-17.5); Mean Corpuscular HGB 30.5 pg (26.0-34.0); Mean Corpuscular HGB Conc 31.2 g/dL (31.5-36.5); Mean Corpuscular Volume 98 fL (80-100); Mean Platelet Volume 10.2 fL (9.1-12.4); Platelet Count 384 K/mm3 (150-400); RDW Coefficient Variation 15.6 % (11.7-14.2); RDW Standard Deviation 56.6 fL (35.1-46.3); Red Blood Cell Count 3.25 M/mm3 (4.30-5.90)
[2024-03-04 06:07] LABS: Albumin, Blood 3.4 g/dL (3.4-5.0); Anion Gap 10 mmol/L (3-11); Blood Urea Nitrogen 18 mg/dL (8-24); Bun/Creatinine Ratio 15.8 (12.0-20.0); CO2, Blood 32 mmol/L (21-32); Calcium, Blood 9.2 mg/dL (8.5-10.1); Chloride, Blood 98 mmol/L (98-108); Creatinine, Blood 1.14 mg/dL (0.60-1.20); Glomerular Filtration Rate 82 (60-); Glucose, Blood 134 mg/dL (70-99); Magnesium, Blood 2.4 mg/dL (1.6-2.4); Phosphorus, Blood 3.1 mg/dL (2.5-4.9); Potassium, Blood 4.6 mmol/L (3.5-5.5); Sodium, Blood 135 mmol/L (136-145)
[2024-03-04 07:25] VITALS: BP 119/88
[2024-03-04 15:20] VITALS: BP 142/95
[2024-03-04] MEDS ORDERED: Mometasone/Formoterol MDI 200/5 mcg 13 GM INH SCH (15:20)
[2024-03-04 19:22] VITALS: BP 153/103
[2024-03-04] MEDS ORDERED: GuaiFENesin 600 MG TabCR PO SCH (21:00)
[2024-03-05 03:29] VITALS: BP 147/91
[2024-03-05 05:45] LABS: Hematocrit 31.8 % (37.0-53.0); Hemoglobin 10.1 g/dL (13.5-17.5); Mean Corpuscular HGB 30.8 pg (26.0-34.0); Mean Corpuscular HGB Conc 31.8 g/dL (31.5-36.5); Mean Corpuscular Volume 97 fL (80-100); Platelet Count 405 K/mm3 (150-400); RDW Coefficient Variation 15.4 % (11.7-14.2); RDW Standard Deviation 55.3 fL (35.1-46.3); Red Blood Cell Count 3.28 M/mm3 (4.30-5.90)
[2024-03-05 06:11] LABS: Albumin, Blood 3.5 g/dL (3.4-5.0); Anion Gap 10 mmol/L (3-11); Blood Urea Nitrogen 22 mg/dL (8-24); Bun/Creatinine Ratio 20.4 (12.0-20.0); CO2, Blood 33 mmol/L (21-32); Calcium, Blood 8.8 mg/dL (8.5-10.1); Chloride, Blood 96 mmol/L (98-108); Creatinine, Blood 1.08 mg/dL (0.60-1.20); Ferritin, Serum 64 ng/mL (26-388); Glomerular Filtration Rate 88 (60-); Glucose, Blood 134 mg/dL (70-99); Magnesium, Blood 2.3 mg/dL (1.6-2.4); Phosphorus, Blood 3.1 mg/dL (2.5-4.9); Potassium, Blood 4.7 mmol/L (3.5-5.5); Sodium, Blood 134 mmol/L (136-145)
[2024-03-05 07:44] VITALS: BP 153/95
[2024-03-05 15:14] VITALS: BP 139/92
[2024-03-05 20:09] VITALS: BP 146/99
[2024-03-05] MEDS ORDERED: AmLODIPine Besylate 5 MG Tab PO SCH (22:30)
[2024-03-06 03:11] VITALS: BP 148/94
[2024-03-06 07:55] VITALS: BP 139/96
[2024-03-06] MEDS ORDERED: Losartan Potassium 25 MG Tab PO SCH (09:00)
[2024-03-06 15:27] VITALS: BP 120/75
[2024-03-06 19:45] VITALS: BP 137/96
[2024-03-07 02:17] VITALS: BP 147/86
[2024-03-07 06:33] LABS: Hematocrit 31.9 % (37.0-53.0); Hemoglobin 10.1 g/dL (13.5-17.5); Mean Corpuscular HGB 30.9 pg (26.0-34.0); Mean Corpuscular HGB Conc 31.7 g/dL (31.5-36.5); Mean Corpuscular Volume 98 fL (80-100); Mean Platelet Volume 9.8 fL (9.1-12.4); Platelet Count 408 K/mm3 (150-400); RDW Coefficient Variation 15.4 % (11.7-14.2); RDW Standard Deviation 55.3 fL (35.1-46.3); Red Blood Cell Count 3.27 M/mm3 (4.30-5.90); White Blood Cell Count 20.99 K/mm3 (4.00-11.30)
[2024-03-07 07:34] VITALS: BP 122/94
[2024-03-07] MEDS ORDERED: PredniSONE 20 MG Tab PO SCH (09:00)
[2024-03-07 15:07] VITALS: BP 138/96
[2024-03-07 19:10] VITALS: BP 125/87
[2024-03-08 03:06] VITALS: BP 126/81
[2024-03-08 07:31] VITALS: BP 142/102
[2024-03-08] MEDS ORDERED: Magnesium Hydroxide Conc 10 ML UDC PO SCH ×2 (07:36→12:00)
[2024-03-08 08:21] LABS: Hematocrit 33.5 % (37.0-53.0); Hemoglobin 10.8 g/dL (13.5-17.5); Mean Corpuscular HGB 31.2 pg (26.0-34.0); Mean Corpuscular HGB Conc 32.2 g/dL (31.5-36.5); Mean Corpuscular Volume 97 fL (80-100); Mean Platelet Volume 9.9 fL (9.1-12.4); Platelet Count 376 K/mm3 (150-400); RDW Coefficient Variation 15.9 % (11.7-14.2); RDW Standard Deviation 55.8 fL (35.1-46.3); Red Blood Cell Count 3.46 M/mm3 (4.30-5.90); White Blood Cell Count 18.02 K/mm3 (4.00-11.30)
[2024-03-08] MEDS ORDERED: ACET500 PO (13:21)
[2024-03-08] MEDS ORDERED: LOSA25 PO (13:21)
[2024-03-08] MEDS ORDERED: Calcium Carbon500 MG PO (13:22)
[2024-03-08] MEDS ORDERED: DOCUZEN 8.6-501 EACH PO (13:23)
[2024-03-08] MEDS ORDERED: DULERA 100 MCG/13 GM INH (13:24)
[2024-03-08] MEDS ORDERED: Prednisone20 MG PO (13:24)
[2024-03-08] MEDS ORDERED: LACT PO (13:25)
[2024-03-08] MEDS ORDERED: Vitamin D1000 UNI1 PO (13:25)
[2024-03-08] MEDS ORDERED: AMOCLA875 PO (13:26)
[2024-03-08] MEDS ORDERED: EUTHYROX50 MCG PO (13:28)
== END 2024-03-08 14:57 | disposition home or self-care (01) | DRG 177 ==
LOC: ER 17:22 → ERHOLD 22:14 → MEDS 22:14
PROVIDERS: Internal Medicine; Physician Assistant; ADMIT Internal Medicine
DX: J15.69 Pneumonia due to other Gram-negative bacteria (principal); J96.21 Acute and chronic respiratory failure with hypoxia; J44.0 Chronic obstructive pulmonary disease with (acute) lower respiratory infection; J44.1 Chronic obstructive pulmonary disease with (acute) exacerbation; E03.9 Hypothyroidism, unspecified; G62.9 Polyneuropathy, unspecified; F15.10 Other stimulant abuse, uncomplicated; F17.210 Nicotine dependence, cigarettes, uncomplicated; Z28.21 Immunization not carried out because of patient refusal; Z79.890 Hormone replacement therapy; Z79.899 Other long term (current) drug therapy
CPT/HCPCS: 0241U; 36415; 71046; 71260; 80053; 80069; 82248; 82728; 83605; 83690; 83735; 83880; 84145; 84439; 84443; 84484; 85025; 85027; 85379; 87040; 87070; 87205; 93005; 93010; 93306; 94640; 94664; 94760; 94761; 96374-59; 99285-25; A9270; J0456; J0692; J0696; J1650; J1885; J2919; J3370; J7030; J7040; J7050; J7512; Q9967

== ENCOUNTER → 2024-03-01 | Outpatient (CLI) | payer OTHER ==
[~2024-03-01] MED LIST changes: +ACET500 PO; +AMOCLA875 PO; +BUPROPION HCL200 M2 PO; +Calcium Carbon500 MG PO; +DOCUZEN 8.6-501 EACH PO; +DULERA 100 MCG/13 GM INH; +EUTHYROX50 MCG PO; +GABA300 PO; +LACT PO; +LOSA25 PO; +METO25; +Prednisone20 MG PO; +Vitamin D1000 UNI1 PO
[2024-03-01 16:28] LABS: BASOPHILS ABSOLUTE AUTO 0.06 K/mm3 (0.00-0.23); BASOPHILS PERCENT AUTO 0 % (0-2); EOSINOPHILS ABSOLUTE AUTO 0.45 K/mm3 (0.00-0.68); EOSINOPHILS PERCENT AUTO 3 % (0-6); Hematocrit 32.3 % (37.0-53.0); Hemoglobin 10.3 g/dL (13.5-17.5); IMMATURE GRAN ABSOLUTE AUTO 0.07 K/mm3 (0.00-0.10); IMMATURE GRAN PERCENT AUTO 1 % (0-1); LYMPHOCYTES ABSOLUTE AUTO 1.48 K/mm3 (0.84-5.20); LYMPHOCYTES PERCENT AUTO 11 % (21-46); MONOCYTES ABSOLUTE AUTO 0.71 K/mm3 (0.16-1.47); MONOCYTES PERCENT AUTO 5 % (4-13); Mean Corpuscular HGB 31.1 pg (26.0-34.0); Mean Corpuscular HGB Conc 31.9 g/dL (31.5-36.5); Mean Corpuscular Volume 98 fL (80-100); NEUTROPHILS PERCENT AUTO 80 % (41-73); Platelet Count 331 K/mm3 (150-400); RDW Coefficient Variation 16.4 % (11.7-14.2); RDW Standard Deviation 58.4 fL (35.1-46.3); Red Blood Cell Count 3.31 M/mm3 (4.30-5.90); White Blood Cell Count 13.67 K/mm3 (4.00-11.30)
[2024-03-01 16:50] LABS: Albumin, Blood 4.4 g/dL (3.4-5.0); Albumin/Globulin Ratio 1.1 (0.8-1.8); Bilirubin, Direct 0.1 mg/dL (0.0-0.3); Bilirubin, Total 0.4 mg/dL (0.1-1.0); Bun/Creatinine Ratio 10.7 (12.0-20.0); Calcium, Blood 9.4 mg/dL (8.5-10.1); Creatinine, Blood 1.5 mg/dL (0.60-1.20); Globulin, Blood 3.9 g/dL (2.2-4.0); Potassium, Blood 4.3 mmol/L (3.5-5.5); Total Protein, Blood 8.3 g/dL (6.4-8.2)
== END | disposition home or self-care (01) ==
LOC: LAB SHORT 16:14 → LAB 16:14
PROVIDERS: Chiropractor
DX: R06.02 Shortness of breath (principal)
CPT/HCPCS: 80053; 82248; 83690; 84484; 85025; 85379